=== PATIENT | female | born 1950 | race Caucasian/White ===

== ENCOUNTER 2018-11-08 11:56 | Emergency (ER) | payer MEDICARE, SELFPAY | END 2018-11-08 15:06 | disposition home or self-care (01) | PROVIDERS: Emergency Provider Emergency Medicine; PCP Family Medicine Adolescent Medicine; Visit Provider Emergency Medicine | DX: M54.9 Dorsalgia, unspecified (principal); E03.9 Hypothyroidism, unspecified; E78.5 Hyperlipidemia, unspecified; E11.9 Type 2 diabetes mellitus without complications | CPT/HCPCS: 36415; 72072; 72100; 80048; 85025; 96374; 96375; 99284; A9270; J1885; J3010 ==

== ENCOUNTER 2019-08-24 00:53 | Day surgery (SDC) | payer MEDICARE, SELFPAY ==
[2019-08-19 13:20] VITALS: BMI 30.2
[2019-08-24 08:38] VITALS: BP 138/48; PULSE 74; RESP 16; TEMP 36.8; O2SAT 97
[2019-08-24] MEDS: LACTATED RINGERS 1,000 ML 150 ML IV CONT (08:53)
[2019-08-24 08:57] LABS: Glucose Point of Care 155 (65-105)
--- NOTE | 2019-08-24 09:07 | WPDANESEPPF ---
Anes - Initial Pre Proc Eval Procedure: Operation Date: 08/24/19 09:30 Proposed Procedures p Screening Colonoscopy - Olaf Lr MD Date/Time: 08/24/19 09:07 Surgeon: Olaf Lr MD Pre Op Diagnosis: Neoplasm Screening Patient Data Age: 69 Gender: F Height: 5 ft 6 in Weight: 84 kg Last Vital Signs Temp 98.2 F 08/24/19 08:38 Pulse 74 08/24/19 08:38 Resp 16 08/24/19 08:38 BP 138/48 L 08/24/19 08:38 Pulse Ox 97 08/24/19 08:38 Allergies Allergy/AdvReac Type Severity Reaction Status Date / Time rosuvastatin Allergy Severe RASH, Verified 08/24/19 08:36 ITCHING adhesive tape Allergy Intermediate Rash Verified 08/24/19 08:36 Quinolones Allergy Mild RASH Verified 08/24/19 08:36 Sulfa (Sulfonamide Allergy Mild RASH, Verified 08/24/19 08:36 Antibiotics) ITCHING codeine Allergy Unknown Verified 08/24/19 08:36 Penicillins Allergy Unknown Verified 08/24/19 08:36 Home Medications Medication Instructions Recorded Confirmed Type diclofenac sodium 75 mg PO DAILY 08/19/19 08/19/19 History diltiazem HCl [Cartia XT] 240 mg PO DAILY 08/19/19 08/19/19 History levothyroxine 125 mcg PO DAILY 08/19/19 08/19/19 History lisinopril 40 mg PO DAILY 08/19/19 08/19/19 History metformin 500 mg PO DAILY 08/19/19 08/19/19 History pantoprazole 40 mg PO DAILY 08/19/19 08/19/19 History paroxetine HCl 30 mg PO DAILY 08/19/19 08/19/19 History tramadol 50 mg PO PRN 08/19/19 History Laboratory Tests 08/24/19 08:50 POC Capillary Glucose 155 mg/dl H mg/dl (65-105) Patient hx anesthesia problems: none Family hx anesthesia problems: none PMFSH Past Medical History Medical History (Updated 08/24/19 @ 09:07 by Gonzalo Burns MD) Depression Diabetes GERD (gastroesophageal reflux disease) Hyperlipidemia Hypothyroid Social History Social History Smoking status: Never smoker Alcohol intake: never Anes - Eval Final PreProcedure Day of Procedure 08/24/19 09:07 Patient weight: overweight Heart: regular rate and rhythm Lungs: clear to auscultation Airway: Mallampati scale class II Neurological: alert and oriented Last oral intake: >/= 8 hours ASA classification: III Emergent: no Anesthetic plan: proceed Anesthesia type and monitoring: general GIVS and standard monitoring Informed Consent: The patient's anesthetic plan and its attendant risks and benefits were discussed with the patient/family/POA. Questions were solicited and answers provided to the satisfaction of the patient/family/POA.
--- NOTE | 2019-08-24 09:34 | WPDGICN ---
Assessment and Plan Additional Plan this is a 69-year-old white female patient seen in evaluation at the request of Dr. Haskins. Patient presents for screening colonoscopy. Her current weight appetite bowel movements are normal. She denies any blood in her stools. She denies abdominal pain. Family history is noncontributory. Past medical history is significant for diabetes, GE reflux disease, hyperlipidemia, and hypothyroidism, and depression. Medications taken at home include diclofenac, diltiazem, levothyroxine, lisinopril, metformin, pantoprazole, paroxetine, and tramadol. She is allergic to rosuvastatin, quinolones, and sulfa. Physical exam reveals patient to be alert. Oriented x3. Vital signs stable. HEENT exam unremarkable. Lungs are clear to auscultation and percussion. Heart is without murmur or extra sounds. Abdominal exam bowel sounds are present soft nontender with no organomegaly. Digital external rectal exam normal. Impression 1. Neoplasia screening. Plan is for colonoscopy. This report follow separately. GI Consult Note Consult date/time: 08/24/19 09:34 HPI: Fiona Rodríguez is a 69 year old female [facility] Past Medical History Medical History (Updated 08/24/19 @ 09:07 by Gonzalo Burns MD) Depression Diabetes GERD (gastroesophageal reflux disease) Hyperlipidemia Hypothyroid Social History Social History Smoking status: Never smoker Alcohol intake: never Meds Home Medications and Allergies Home Medications Medication Instructions Recorded Confirmed Type diclofenac sodium 75 mg PO DAILY 08/19/19 08/19/19 History diltiazem HCl [Cartia XT] 240 mg PO DAILY 08/19/19 08/19/19 History levothyroxine 125 mcg PO DAILY 08/19/19 08/19/19 History lisinopril 40 mg PO DAILY 08/19/19 08/19/19 History metformin 500 mg PO DAILY 08/19/19 08/19/19 History pantoprazole 40 mg PO DAILY 08/19/19 08/19/19 History paroxetine HCl 30 mg PO DAILY 08/19/19 08/19/19 History tramadol 50 mg PO PRN 08/19/19 History Allergies Allergy/AdvReac Type Severity Reaction Status Date / Time rosuvastatin Allergy Severe RASH, Verified 08/24/19 08:36 ITCHING adhesive tape Allergy Intermediate Rash Verified 08/24/19 08:36 Quinolones Allergy Mild RASH Verified 08/24/19 08:36 Sulfa (Sulfonamide Allergy Mild RASH, Verified 08/24/19 08:36 Antibiotics) ITCHING codeine Allergy Unknown Verified 08/24/19 08:36 Penicillins Allergy Unknown Verified 08/24/19 08:36 Vital Signs Vital Signs - 24 hr 08/24/19 08:38 Temperature 36.8 C Pulse Rate 74 Respiratory Rate 16 Blood Pressure 138/48 L Pulse Oximetry 97
[2019-08-24] MEDS: SIMETHICONE ORAL SUSPENSION 20 MG/0.3 ML 30 ML BOTTLE 0.6 ML IRRIGATION (09:47)
[2019-08-24 10:00] VITALS: BP 155/63; PULSE 80; RESP 17; O2SAT 95
[2019-08-24 10:10] VITALS: BP 133/56; PULSE 69; RESP 21; O2SAT 97
[2019-08-24 10:20] VITALS: BP 130/58; PULSE 72; RESP 18; O2SAT 97
== END 2019-08-24 10:33 | disposition home or self-care (01) ==
PROVIDERS: PCP Family Medicine Adolescent Medicine; Visit Provider Internal Medicine Gastroenterology
PROC: 0DJD8ZZ Inspection of Lower Intestinal Tract, Via Natural or Artificial Opening Endoscopic (ICD-10-PCS; CPT 45378; principal; 2019-08-24 09:30)
DX: Z12.11 Encounter for screening for malignant neoplasm of colon (principal); K57.30 Diverticulosis of large intestine without perforation or abscess without bleeding; K64.8 Other hemorrhoids; E11.9 Type 2 diabetes mellitus without complications; E78.5 Hyperlipidemia, unspecified; E03.9 Hypothyroidism, unspecified; K21.9 Gastro-esophageal reflux disease without esophagitis; F32.9 Major depressive disorder, single episode, unspecified; Z79.84 Long term (current) use of oral hypoglycemic drugs
CPT/HCPCS: G0121; J2704; J7120

== ENCOUNTER 2020-05-26 12:46 | Outpatient (CLI) | payer MEDICARE, SELFPAY ==
--- NOTE | 2020-05-29 08:39 | WPDPFTINT ---
PFT Interpretation PFT Interpretation: This PFT met all criteria for ATS standards and reproducibility FEV/FVC post bronchodilator 68% FEV1 100% FVC 105% TLC 109% RV 102% RV/TLC 37% DLCO 67% when adjusted for alveolar volume but not adjusted for hemoglobin Flow volume loops appeared normal Impression: Mild airflow obstruction with mildly reduced diffusion capacity. This pattern is suggestive of COPD Clinical correlation is advised.
== END 2020-05-26 12:47 | disposition home or self-care (01) ==
PROVIDERS: PCP Family Medicine Adolescent Medicine; Visit Provider Internal Medicine Critical Care Medicine
DX: R06.00 Dyspnea, unspecified (principal)
CPT/HCPCS: 94060; 94726; 94729

== ENCOUNTER 2020-07-05 12:41 | Outpatient (CLI) | payer MEDICARE, SELFPAY ==
--- NOTE | 2020-07-08 05:43 | WPDPFTINT ---
PFT Interpretation This is a methacholine challenge test. The test was performed and interpreted in accordance with the 1999 [employer] [employer] guidelines. The test was performed with increasing doses of nebulized methacholine using a 2 minute tidal breathing protocol. The best post-methacholine FEV1 values were used to calculate the change from the post diluent FEV1. Findings: Baseline FEV1 2.20 L, 100% predicted. Post diluent FEV1 2.21 L Post 0.025 mg/ml methacholine FEV1 2.08 L, decreased 6% Post 0.25 mg/mL methacholine FEV1 2.10 L, decreased 5% Post 2.5 mg/mL methacholine FEV1 1.97 L, decreased 11% Post 10 mg/mL methacholine FEV1 1.65 L, decreased 25% Post albuterol nebulization FEV1 2.06 L Impression: The PC20 is 5.9 mg/ml which is categorized as borderline bronchial responsiveness. There are no prior studies for comparison
== END 2020-07-05 12:42 | disposition home or self-care (01) ==
PROVIDERS: PCP Family Medicine Adolescent Medicine; Visit Provider Internal Medicine Critical Care Medicine
DX: R06.09 Other forms of dyspnea (principal)
CPT/HCPCS: 94070; J7674

== ENCOUNTER → 2020-07-22 11:09 | Outpatient (CLI) | payer MEDICARE, SELFPAY ==
--- NOTE | ~2020-07-22 | MM_ITS ---
EXAMINATION: MM screening coy BI w jacqueline HISTORY: Screening TECHNIQUE: Craniocaudal and mediolateral oblique 3-D tomosynthesis images were obtained and synthetic 2-D images were generated. CAD analysis was submitted and interpreted. COMPARISON: Comparison to multiple prior studies sequentially, with oldest reviewed study dated 03/25. BREAST PARENCHYMAL COMPOSITION: There are scattered areas of fibroglandular density. FINDINGS: There is no evidence of suspicious mass, calcification, or architectural distortion to sugg est malignancy in either breast. There has been no suspicious interval change. IMPRESSION: 1. No mammographic evidence of malignancy. 2. Recommend routine screening mammography in one year. BI-RADS Category 1: Negative Reviewed, dictated and finalized at location A. ET MASTER
== END ==
PROVIDERS: PCP Family Medicine Adolescent Medicine; Visit Provider Family Medicine Adolescent Medicine
DX: Z12.31 Encounter for screening mammogram for malignant neoplasm of breast (principal)
CPT/HCPCS: 77063; 77067

== ENCOUNTER → 2020-08-02 13:01 | Outpatient (CLI) | payer MEDICARE, SELFPAY ==
--- NOTE | ~2020-08-02 | XR_ITS ---
EXAMINATION: XR chest 2V DATE: 08/02/2020 13:56 INDICATION: Dyspnea on exertion. TECHNIQUE: Frontal and lateral views of the chest were obtained. COMPARISON: Chest 2 views 09/23/18 FINDINGS: There is mild atelectasis at left lung base. No pleural effusion or pneumothorax. The heart size is normal. There is mild chronic anterior wedging of multiple midthoracic vertebral bodies. IMPRESSION: 1. Mild atelectasis at left lung base. Reviewed, dictated and finalized at location A. STAPLER
--- NOTE | ~2020-08-02 | MR_ITS ---
EXAMINATION: MR cervical spine wo con DATE: 08/02/2020 13:46 INDICATION: Paresthesias and weakness in the right arm. TECHNIQUE: Magnetic resonance imaging (MRI) of the cervical spine was performed without intravenous c ontrast. Sequences included sagittal T2-weighted FSE, sagittal STIR FSE, sagittal T1-weighted FSE, ax ial MERGE, and axial T2-weighted FSE. COMPARISON: None FINDINGS: There is 5 degrees dextrocurvature of cervical spine. There is kyphosis of lower cervical s pine. There is 2 mm anterolisthesis of C4 on C5. There is mild chronic anterior wedging of C5 and C6 vertebral bodies. There is mildly decreased disc height at C3-C4, moderately decreased disc height at C5-C6, and severely decreased disc height at C6-C7. The spinal cord signal intensity is normal. The following disc levels are specifically discussed: C2-C3: There is a central protrusion. There is mild right and moderate left uncovertebral joint osteo arthritis. There is mild right and severe left facet joint osteoarthritis. There is moderate left ally ral foraminal stenosis. There is mild central canal stenosis. C3-C4: The disc is bulging. There is moderate right and severe left uncovertebral joint osteoarthriti s. There is severe bilateral facet joint osteoarthritis. There is moderate bilateral neural foraminal stenosis. There is mild central canal stenosis. C4-C5: The disc is bulging. There is mild bilateral uncovertebral joint osteoarthritis. There is mode rate right and severe left facet joint osteoarthritis. There is moderate bilateral neural foraminal s tenosis. There is mild central canal stenosis with ventral indentation of the spinal cord. C5-C6: The disc is bulging. There is severe bilateral uncovertebral joint osteoarthritis. There is se bhupendra bilateral facet joint osteoarthritis. There is severe right and moderate left neural foraminal s tenosis. There is mild central canal stenosis with ventral indentation of spinal cord. C6-C7: The disc is bulging. There is severe bilateral uncovertebral joint osteoarthritis. There is se bhupendra bilateral facet joint osteoarthritis. There is moderate bilateral neural foraminal stenosis. The re is mild central canal stenosis with ventral indentation of the spinal cord. C7-T1: The disc does not extend beyond the endplate margin. There is no uncovertebral joint osteoarth ritis. There is severe bilateral facet joint osteoarthritis. There is mild bilateral neural foraminal stenosis. There is no central canal stenosis. IMPRESSION: 1. Severe cervical spondylosis. Reviewed, dictated and finalized at location A. OGICAL ENGINEER
== END ==
PROVIDERS: PCP Family Medicine Adolescent Medicine; Visit Provider Family Medicine Adolescent Medicine
DX: R20.2 Paresthesia of skin (principal); R06.09 Other forms of dyspnea; M47.812 Spondylosis without myelopathy or radiculopathy, cervical region; R91.8 Other nonspecific abnormal finding of lung field
CPT/HCPCS: 71046; 72141

== ENCOUNTER → 2020-08-22 14:15 | Outpatient (CLI) | payer MEDICARE, SELFPAY ==
--- NOTE | ~2020-08-22 | XR_ITS ---
EXAMINATION: XR lumbar spine 2-3V DATE: 08/22/2020 14:33 INDICATION: Low back pain TECHNIQUE: Anteroposterior and lateral views of the lumbar spine, and cone-down lateral view of the l umbosacral junction were obtained. COMPARISON: 11/08/2018 FINDINGS: There are 4 mm of stable anterolisthesis of L4 on L5. Severe and unchanged loss of interver tebral disc space height is present at L2-3. There is mild loss of intervertebral disc space height t hroughout the remainder of the lumbar spine. No fracture is identified. The vertebral body heights ar e maintained. There is severe multilevel facet osteoarthritis. Cholecystectomy clips are noted. IMPRESSION: 1. Severe lumbar spondylosis without acute findings or significant interval change. Reviewed, dictated and finalized at location A. DING ASSOCIATE IMPRESSION: 1. Severe lumbar spondylosis without acute findings or significant interval miguel nge.
== END ==
PROVIDERS: PCP Family Medicine Adolescent Medicine; Visit Provider Family Medicine Adolescent Medicine
DX: M54.5 Low back pain (principal); M47.816 Spondylosis without myelopathy or radiculopathy, lumbar region
CPT/HCPCS: 72100

== ENCOUNTER → 2020-08-24 12:01 | Outpatient (CLI) | payer MEDICARE, SELFPAY ==
--- NOTE | ~2020-08-24 | MR_ITS ---
EXAMINATION: MR lumbar spine wo con DATE: 08/24/2020 12:55 INDICATION: Severe lumbar spondylosis with low back pain and bilateral radiculopathy. TECHNIQUE: Magnetic resonance imaging (MRI) of the lumbar spine was performed without intravenous con trast. Sequences included sagittal T2-weighted FSE, sagittal T2-weighted FS FSE, sagittal T1-weighted FSE, and axial T2-weighted FSE. COMPARISON: Lumbar spine radiographs dated 08/22/2020 FINDINGS: 2 mm retrolisthesis L2 on L3 and 2 mm anterolisthesis L4 on L5. Approximately 10 degrees lumbar levos coliosis. Moderate to severe right-sided predominant disc height loss at L2-L3 with right-sided degen erative endplate remodeling resulting in minimal right-sided vertebral body height loss at both L2 an d L3. Vertebral body heights are otherwise normal. Mild disc height loss at L3-L4 and L4-L5. Disc maria d iccation without significant disc height loss at L5-S1. There are annular fissures at each of these l evels which will be further detailed below. Multiple T1 hyperintense hemangiomas including at T12, L2 , L3 and S1. Otherwise normal marrow signal. The conus medullaris terminates at L1. There is normal s ignal in the caudal spinal cord. Paravertebral soft tissues are unremarkable. The following disc leve ls are specifically discussed: T12-L1: The disc does not extend beyond the endplate margin. There is left and moderate right facet j oint osteoarthritis. There is no neural foraminal stenosis. There is no central canal stenosis. L1-L2: The disc does not extend beyond the endplate margin. There is moderate bilateral facet joint o steoarthritis. There is no neural foraminal stenosis. There is no central canal stenosis. L2-L3: Disc is bulging with annular fissure and superimposed right foraminal zone disc extrusion with disc material extending 2-3 mm caudal to the level of the superior endplate of L3. There is hypertro phy of the ligamentum flavum, right greater than left. There is moderate left and severe right facet joint osteoarthritis. There is mild left and moderate right neural foraminal stenosis. There is moder ate to severe central canal stenosis with negligible CSF signal amongst the centrally clustered nerve roots. Narrowing of the lateral recesses, right greater than left. L3-L4: Disc is bulging with superimposed left paracentral to foraminal zone disc extrusion with disc material extending up to 4 mm cephalad and caudal to the level of the endplates. There is hypertrophy of the ligamentum flavum. There is severe bilateral facet joint osteoarthritis. There is a synovial cyst at the medial aspect of the left facet joint projecting into the central canal. There is mild r ight and moderate left neural foraminal stenosis. There is severe central canal stenosis along with s evere narrowing of the left lateral recess. L4-L5: Disc is bulging with superimposed left foraminal zone annular fissure. There is hypertrophy of the ligamentum flavum. There is severe bilateral facet joint osteoarthritis. There is moderate bila teral neural foraminal stenosis. There is moderate to severe central canal stenosis and narrowing of the left and right lateral recesses. L5-S1: Disc is bulging with superimposed right foraminal zone annular fissure and small disc extrusio n with disc material extending couple millimeter cephalad to the level of the inferior endplate of L5 . There is severe bilateral facet joint osteoarthritis. There is moderate left and mild to moderate r ight neural foraminal stenosis. There is mild central canal stenosis lung with mild narrowing of the left and right lateral recesses. IMPRESSION: 1. Moderate to severe lumbar spondylosis. Reviewed, dictated and finalized at location B. CH TROUBLE SHOOTER IMPRESSION: 1. Moderate to severe lumb
== END ==
PROVIDERS: PCP Family Medicine Adolescent Medicine; Visit Provider Family Medicine Adolescent Medicine
DX: M47.26 Other spondylosis with radiculopathy, lumbar region (principal)
CPT/HCPCS: 72148

== ENCOUNTER 2020-09-23 07:25 | Outpatient (CLI) | payer MEDICARE, SELFPAY ==
--- NOTE | 2020-09-23 | ECHO_ITS ---
Patient Info Name: Fiona Rodríguez Age: 70 years : 1950 Gender: Female Ht: 66 in Wt: 180 lbs BSA: 1.97 m2 HR: 70 bpm BP: 145 / 65 mmHg Heart Rhythm: Sinus Rhythm Exam Date: 09/23/2020 7:44 AM Exam Location: [facility] Pulmonary Patient Status: Outpatient Admit Date: 09/23/2020 Staff Ordering Physician: Elan Castro DO Call Center Operator: Shazia Lai RDCS Attending Provider: Elan Castro DO Exam Type: CA echo doppler color flow Study Info Indications R06.00 - Dyspnea, unspecified Complete two-dimensional, color flow and Doppler transthoracic echocardiogram is performed. Summary 1. Complete two-dimensional, color flow and Doppler transthoracic echocardiogram is performed. 2. Left ventricular chamber dimension is normal. 3. Left ventricular systolic function is normal, estimated at 60-65%. 4. The left ventricular diastolic function is grade I diastolic dysfunction. 5. E/e' 14 is mildly elevated. 6. There is mild aortic valve sclerosis. 7. There is mild aortic valve regurgitation. 8. There is trace mitral valve regurgitation. 9. No pulmonary hypertension, estimated pulmonary arterial systolic pressure is 28 mmHg. 10. There is small circumferential pericardial effusion. Left Ventricle E/e' 14 is mildly elevated. Left ventricular chamber dimension is normal. Left ventricular systolic function is normal, estimated at 60-65%. The left ventricular diastolic function is grade I diastolic dysfunction. Right Ventricle Right ventricular chamber dimension is normal. Right ventricular systolic function is normal. Left Atria Left atrial chamber dimension is normal. Right Atria Right atrial chamber dimension is normal. Aortic Valve The aortic valve is trileaflet. There is mild aortic valve sclerosis. There is no aortic valve stenosis. There is mild aortic valve regurgitation. Pulmonic Valve There is no pulmonic regurgitation. Mitral Valve There is no mitral valve stenosis. There is trace mitral valve regurgitation. Tricuspid Valve There is no tricuspid valve regurgitation. No pulmonary hypertension, estimated pulmonary arterial systolic pressure is 28 mmHg. Pericardium/Pleural There is small circumferential pericardial effusion. Inferior Vena Cava Normal inferior vena cava with >50% collapse upon inspiration consistent with normal right atrial pressure, 5 mmHg. Aorta The aortic root size at the sinus of Valsalva is normal. Left Ventricular Outflow Tract Name Value Normal LVOT 2D LVOT Diameter 1.7 cm LVOT Doppler LVOT Peak Velocity 132 cm/s LVOT Peak Gradient 7 mmHg LVOT Mean Gradient 3 mmHg LVOT VTI 31 cm LVOT VTI/AV VTI Ratio 0.5 LVOT Stroke Volume 69 ml LVOT CO 4.5 l/min LVOT CI 2.3 l/min/m2 Pulmonic Valve Name Value Shanique
--- NOTE | ~2020-09-23 | NM_ITS ---
EXAMINATION: NM jonel stress w perfusion DATE: 09/23/2020 11:39 INDICATION: Dyspnea TECHNIQUE: Rest images were obtained following intravenous administration of 10 mCi Tc99m tetrofosmin (Myoview). The patient was infused intravenously with Lexiscan (Regadenoson). Then, 30 mCi Tc99m tet rofosmin (Myoview) was administered intravenously, and stress images were obtained. Data was reconstr ucted into short axis and horizontal and vertical long axis SPECT images. Gated SPECT images were als o obtained. COMPARISON: None. FINDINGS: There is no definite reversible or fixed perfusion abnormality to suggest ischemia or infar ction. There is normal left ventricular chamber size, wall motion and ejection fraction. Left ventr icular ejection fraction measures 67%. IMPRESSION: 1. Normal myocardial perfusion at rest and during stress. 2. Left ventricular ejection fraction measuring 67%. Reviewed, dictated and finalized at location A.
--- NOTE | 2020-09-23 07:40 | EST_ITS ---
Patient Info Name: Fiona Rodríguez Age: 70 years : 1950 Gender: Female Ht: 66 in Wt: 180 lbs BSA: 1.97 m2 Exam Date: 09/23/2020 9:56 AM Exam Location: [facility] Stress Patient Status: Outpatient Admit Date: 09/23/2020 Staff Ordering Physician: Elan Castro DO Attending Provider: Elan Castro DO Exercise Technologist: Marysol Mota RDCS Exercise Physician: Elan Castro DO Exam Type: CA stress jonel w NM Study Info Indications R06.00 - Dyspnea, unspecified A regadenoson stress test was performed. Summary 1. 1. Negative lexiscan stress test for ischemic ST changes by ECG criteria. 2. 2. Baseline hypertension. 3. 3. Nuclear scan to follow and will be reported separately. Please correlate with it. 4. 4. Patient informed of the above results. Protocol: Lexiscan Stress ECG Details Stage: REST Duration (min): 2 min : 1 sec HR (bpm): 65 SBP (mmHg): 152 DBP (mmHg): 56 Stage: REST Duration (min): 2 min : 24 sec HR (bpm): 64 SBP (mmHg): 152 DBP (mmHg): 56 Stage: STAGE 1 Duration (min): 1 min : 0 sec HR (bpm): 70 SBP (mmHg): 159 DBP (mmHg): 60 Stage: RECOVERY Duration (min): 1 min : 0 sec HR (bpm): 79 SBP (mmHg): 159 DBP (mmHg): 60 Stage: RECOVERY Duration (min): 2 min : 0 sec HR (bpm): 76 SBP (mmHg): 158 DBP (mmHg): 56 Stage: RECOVERY Duration (min): 3 min : 0 sec HR (bpm): 70 SBP (mmHg): 156 DBP (mmHg): 55 Stage: RECOVERY Duration (min): 3 min : 7 sec HR (bpm): 70 SBP (mmHg): 156 DBP (mmHg): 55 Rest HR: 64 bpm Peak HR: 83 bpm Rest Sys BP: 152 mmHg Peak Sys BP: 159 mmHg Max Pred HR: 150 bpm % Max Pred HR: 55 % Target HR: 128 bpm Max RPP: 13,197 bpm*mmHg Termination Reason: Completed protocol Cardiac Symptoms: Nausea Total Time: 1 min : 0 sec Rest Garcia BP: 56 mmHg Peak Garcia BP: 60 mmHg Total Dose: 0.4 mg Resting ECG Sinus rhythm, borderline T wave abnormality in diffuse leads. Stress ECG No ST changes. Arrhythmias None. Report Signatures
== END 2020-09-23 07:26 | disposition home or self-care (01) ==
PROVIDERS: PCP Family Medicine Adolescent Medicine; Visit Provider Internal Medicine Cardiovascular Disease
DX: R06.00 Dyspnea, unspecified (principal); I31.3 Pericardial effusion (noninflammatory)
CPT/HCPCS: 78452; 93017; 93306; A9502; C8929; J2785

== ENCOUNTER → 2020-10-31 16:17 | Outpatient (CLI) | payer MEDICARE, SELFPAY ==
--- NOTE | ~2020-10-31 | XR_ITS ---
EXAMINATION: XR lumbar spine min 4V EXAM DATE: 10/31/2020 16:42 INDICATION: Spondylolisthesis. Pain across low back for months. TECHNIQUE: Lumber spine frontal, lateral, lateral L5-S1 projections for interpretation. Additional l ateral flexion and lateral extension projections obtained. Comparison is made to prior examination fr 08/22/2020. FINDINGS: There is moderate to severe disc disease at L2-3 with 2 to 3 mm retrolisthesis. Otherwise mild lumbar disc disease. There is 2 to 3 mm anterolisthesis L4 on L5. These subluxations do not david ear to change between the flexion and extension projections. There is mild to moderate lumbar levosco liosis. There is severe lumbar facet arthropathy. Sacrum, sacroiliac joints, sacral arcuate lines are intact. There are cholecystectomy clips. IMPRESSION: 1. Severe lumbar facet arthropathy. 2. Moderate to severe L2-3 disc disease. 3. Mild subluxations. Reviewed, dictated and finalized at location A.
== END ==
PROVIDERS: PCP Family Medicine Adolescent Medicine; Visit Provider Neurological Surgery
DX: M43.16 Spondylolisthesis, lumbar region (principal); M51.9 Unspecified thoracic, thoracolumbar and lumbosacral intervertebral disc disorder; M99.13 Subluxation complex (vertebral) of lumbar region
CPT/HCPCS: 72110

== ENCOUNTER → 2022-04-30 13:48 | Outpatient (CLI) | payer MEDICARE, SELFPAY ==
--- NOTE | ~2022-04-30 | MM_ITS ---
EXAMINATION: MM screening coy BI w jacqueline HISTORY: Screening mammogram TECHNIQUE: Craniocaudal and mediolateral oblique 3-D tomosynthesis images were obtained and synthetic 2-D images were generated. CAD analysis was submitted and interpreted. COMPARISON: 07/22/2020, 07/03/2019, 05/28/2018 bilateral screening mammogram examinations BREAST PARENCHYMAL COMPOSITION: The breasts are almost entirely fatty. FINDINGS: There is no evidence of suspicious mass, calcification, or architectural distortion to sugg est malignancy in either breast. There has been no suspicious interval change. IMPRESSION: 1. No mammographic evidence of malignancy. 2. Recommend routine screening mammography in one year. BI-RADS Category 1: Negative Reviewed, dictated and finalized at location A. 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
== END ==
PROVIDERS: PCP Family Medicine Adolescent Medicine; Visit Provider Family Medicine Adolescent Medicine
DX: Z12.31 Encounter for screening mammogram for malignant neoplasm of breast (principal)
CPT/HCPCS: 77063; 77067

== ENCOUNTER 2022-05-29 08:43 | Outpatient (CLI) | payer MEDICARE, SELFPAY ==
--- NOTE | 2022-05-29 11:00 | NEURO_ITS ---
Impression: # History of right hand numbness. # Right Carpal Tunnel Syndrome. # Needle/EMG exam not requested. # Clinical correlation recommended. Motor Nerve Conduction Upper Extremities Median Nerve Conduction Velocity (m/sec) Terminal Latency (msec) Response Voltage(mV) Elbow-Wrist Wrist Elbow Wrist Right 52 6.6 2 2 Left Ulnar Nerve Conduction Velocity (m/sec) Terminal Latency (msec) Response Voltage(mV) Above Elbow Below Elbow Wrist Above Elbow Below Elbow Wrist Right 52 54 2.2 4 5 5 Left F-Wave Latency Median (ms) Ulnar (ms) Right 28.4 29.0 Left Sensory Nerve Conduction Upper Extremities Median Nerve Stimulation Terminal Latency (msec) Wrist/Digit Response Voltage (uV) Wrist Right 6.2/6.1 30/57 Left Ulnar Nerve Stimulation Terminal Latency (msec) Wrist/Digit Response Voltage (uV) Wrist Right 2.5 26 Left Radial Nerve Terminal Latency (msec) Response Voltage(mV) Right 1.8 15 Left MTDD
== END 2022-05-29 08:44 | disposition home or self-care (01) ==
PROVIDERS: PCP Family Medicine Adolescent Medicine; Visit Provider Family Medicine Adolescent Medicine
DX: R20.2 Paresthesia of skin (principal); G56.01 Carpal tunnel syndrome, right upper limb
CPT/HCPCS: 95909

== ENCOUNTER 2022-07-27 08:31 | Outpatient (CLI) | payer MEDICARE, SELFPAY ==
--- NOTE | 2022-07-27 | ECG_ITS ---
Measurements Intervals [place] Rate: 82 P: 39 GA: 117 QRS: -13 QRSD: 91 T: 77 QT: 381 QTc: 447 Interpretive Statements SINUS RHYTHM WITH SHORT GA INTERVAL WITH OCCASIONAL VENTRICULAR PREMATURE COMPLEXES NONSPECIFIC T-WAVE ABNORMALITY NO PREVIOUS ECG AVAILABLE FOR COMPARISON Electronically Signed On 07-27-2022 14:57:48 SOCIAL SERVICES SPECIALIST by Jordan Ta M.D.
[2022-07-27 09:18] LABS: Anion Gap 12 mmol/L (8-16); Blood Urea Nitrogen 9 mg/dL (7-17); Calcium 9.1 mg/dL (8.4-10.2); Carbon Dioxide 25 mmol/L (22-30); Chloride 101 mmol/L (98-107); Estimated Glomerular Filt Rate > 60; Glucose 203 mg/dL (65-110); Potassium 4.1 mmol/L (3.4-5.0); Sodium 138 mmol/L (137-145)
== END 2022-07-27 08:32 | disposition home or self-care (01) ==
LOC: ANHLAB 08:39
PROVIDERS: PCP Family Medicine Adolescent Medicine
DX: I10 Essential (primary) hypertension (principal); E11.9 Type 2 diabetes mellitus without complications; R94.31 Abnormal electrocardiogram [ECG] [EKG]
CPT/HCPCS: 36415; 80048; 93005

== ENCOUNTER → 2022-10-02 10:25 | Outpatient (CLI) | payer MEDICARE, SELFPAY ==
--- NOTE | ~2022-10-02 | MR_ITS ---
MRI of the brain Clinical History: Memory impairment Technique: Axial and sagittal T1-weighted images were acquired. These were followed by axial T2-weigh amor, diffusion weighted, gradient, and FLAIR images. COMPARISON: 04/25/2018 Findings: There is no acute infarct, intracranial hemorrhage, or mass lesion. There are minimal chron ic white matter changes in the white matter bilaterally. Ventricles and subarachnoid spaces are unremarkable. Orbits are unremarkable. Paranasal sinuses and m astoid air cells are clear. Major intracranial flow voids appear intact. Sagittal midline structures are intact. IMPRESSION: No acute abnormality. Minimal chronic white matter changes. Reviewed, dictated and finalized at location M.
== END ==
PROVIDERS: PCP Family Medicine Adolescent Medicine; Visit Provider Student in an Organized Health Care Education/Training Program
DX: F03.90 Unspecified dementia, unspecified severity, without behavioral disturbance, psychotic disturbance, mood disturbance, and anxiety (principal)
CPT/HCPCS: 70551

== ENCOUNTER → 2023-02-01 10:11 | Outpatient (CLI) | payer MEDICARE, SELFPAY ==
--- NOTE | ~2023-02-01 | DEXA_ITS ---
Bone Density Report Name: ASHTYN BRYANT Age: 72 Sex: Female Ethnicity: White Date of : 1950 Indication: postmenopausal; screening for osteoporosis; height loss; hysterectomy; Referring Provider: ANETTE CUELLAR Study: Bone densitometry was performed. Exam Date: February 01, 2023 Accession number: [id number] Bone Density: Region BMD T-score Z-score Classification AP Spine (L1, L4) 1.174 1.2 3.5 Normal Femoral Neck (Left) 0.930 0.7 2.7 Normal Total Hip (Left) 0.981 0.3 2.0 Normal Femoral Neck (Right) 0.939 0.8 2.8 Normal Total Hip (Right) 0.926 -0.1 1.5 Normal Total Hip Mean 0.954 0.1 1.8 Normal World Health Organization criteria for BMD impression classify patients as: Normal (T-score at or above -1.0), Osteopenia (T-score between -1.0 and -2.5), or Osteoporosis (T-score at or below -2.5). 10-year Fracture Risk: FRAX not reported because: All T-scores for Spine Total, Hip Total, Femoral Neck at or above -1.0 Previous Exams: Region Exam Age BMD T-score BMD Change BMD Change Date g/cm2 vs Baseline vs Previous AP Spine(L1, L4) 02/01/2023 72 1.174 1.2 -0.097 0.046* 05/07/2017 66 1.128 0.8 -0.143 -0.043* 04/26/2008 57 1.172 1.2 -0.100 -0.100 05/19/2003 52 1.272 2.1 Total Hip(Left) 02/01/2023 72 0.981 0.3 -0.060 0.018 05/07/2017 66 0.964 0.2 -0.077 -0.071* 04/26/2008 57 1.035 0.8 -0.006 -0.006 05/19/2003 52 1.041 0.8 Total Hip(Right) 02/01/2023 72 0.926 -0.1 -0.148 -0.057* 05/07/2017 66 0.983 0.3 -0.091 -0.036* 04/26/2008 57 1.019 0.6 -0.055 -0.055 05/19/2003 52 1.074 1.1 *Denotes significance at 95% confidence level, LSC for AP Spine = 0.022 g/cm2, LSC for Total Hip = 0.027 g/cm2 Clinical Information Provided by Patient: Has the following medical conditions: Hysterectomy Patient maximum height was 67 Menopause Age: 32 No regular weight bearing exercise Drinks caffeinated beverages Onset of menses at age 12 Number of children 2 Impression: The patient has normal bone mass. The BMD for the Total Hip(Right) decreased, changing by -0.057 since the last DXA exam. Discussion: BONE DENSITY IS ABOVE THE MINIMUM DESIRABLE LEVEL AT ALL SKELETAL SITES TESTED. This patient?s bone mineral density is above the minimum
== END ==
PROVIDERS: PCP Family Medicine Adolescent Medicine; Visit Provider Family Medicine Adolescent Medicine
DX: Z78.0 Asymptomatic menopausal state (principal)
CPT/HCPCS: 77080

== ENCOUNTER 2023-03-21 07:00 | Outpatient (NON) | payer MEDICARE, SELFPAY | END 2023-03-21 07:01 | disposition home or self-care (01) | LOC: ANHLAB 03-22 11:01 | PROVIDERS: PCP Family Medicine Adolescent Medicine; Visit Provider Nurse Practitioner | DX: C44.41 Basal cell carcinoma of skin of scalp and neck (principal) | CPT/HCPCS: 88305 ==

== ENCOUNTER → 2023-03-27 10:52 | Outpatient (CLI) | payer MEDICARE, SELFPAY ==
--- NOTE | ~2023-03-27 | MR_ITS ---
MRI of the lumbar spine Clinical History: Radicular pain Technique: Axial T2-weighted images, and sagittal T1-weighted, T2-weighted, and T2 fat-sat images wer e acquired. COMPARISON: 08/24/2020 Findings: There is no fracture in the lumbar spine. There is minimal grade 1 retrolisthesis of L2 ove r L3. There is severe degenerative disc narrowing L2-L3. No suspicious bone marrow signal abnormality seen. There is intraosseous hemangioma of T12. At L1-L2, there is no disc bulge or herniation. There is moderate to severe facet arthropathy. No spi nal canal stenosis or neural foraminal narrowing. At L2-L3, there is disc bulge and severe facet arthropathy, with moderate central canal stenosis. The re is severe right neural foraminal narrowing and right lateral recess stenosis. There is mild left n eural foraminal narrowing. At L3-L4, disc bulge and severe facet arthropathy are present with probable superimposed left paracen tral to foraminal disc protrusion. There is severe central canal stenosis/thecal sac compression. The re is severe bilateral neural foraminal narrowing, left worse than right. At L4-L5, there is diffuse disc bulge and severe facet arthropathy. There is moderate to severe centr al canal stenosis/thecal sac compression. There is advanced bilateral neural foraminal narrowing. At L5-S1, there is mild disc bulge with severe facet arthropathy. No central canal stenosis. There is severe bilateral neural foraminal narrowing, left worse than right. Paravertebral soft tissues are unremarkable. Impression: Severe degenerative spondylosis, as detailed above. There is multilevel moderate to severe central ca nal stenosis/thecal sac compression and multilevel severe neural foraminal narrowing. Reviewed, dictated and finalized at [facility]. Impression: Severe degenerative spondylosis, as detailed above. There is multilevel moderat e to severe central canal stenosis/thecal sac compression and multilevel severe neural foraminal narrowing.
== END ==
PROVIDERS: PCP Family Medicine Adolescent Medicine; Visit Provider Nurse Practitioner Family
DX: M47.26 Other spondylosis with radiculopathy, lumbar region (principal); M48.061 Spinal stenosis, lumbar region without neurogenic claudication
CPT/HCPCS: 72148

== ENCOUNTER 2023-04-29 14:06 | Outpatient (NON) | payer MEDICARE, SELFPAY | END 2023-04-29 14:07 | disposition home or self-care (01) | PROVIDERS: PCP Family Medicine Adolescent Medicine; Visit Provider Nurse Practitioner | DX: C44.41 Basal cell carcinoma of skin of scalp and neck (principal) | CPT/HCPCS: 88305; 88331 ==

== ENCOUNTER → 2023-05-03 10:02 | Outpatient (CLI) | payer MEDICARE, SELFPAY ==
--- NOTE | ~2023-05-03 | MM_ITS ---
EXAMINATION: MM screening coy BI w jacqueline HISTORY: Screening TECHNIQUE: Craniocaudal and mediolateral oblique 3-D tomosynthesis images were obtained and synthetic 2-D images were generated. CAD analysis was submitted and interpreted. COMPARISON: Comparison to multiple prior studies sequentially, with oldest reviewed study dated 03/25. BREAST PARENCHYMAL COMPOSITION: There are scattered areas of fibroglandular density. FINDINGS: There is no evidence of suspicious mass, calcification, or architectural distortion to sugg est malignancy in either breast. There has been no suspicious interval change. IMPRESSION: 1. No mammographic evidence of malignancy. 2. Recommend routine screening mammography in one year. BI-RADS Category 1: Negative Reviewed, dictated and finalized at location A. 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
== END ==
PROVIDERS: PCP Family Medicine Adolescent Medicine; Visit Provider Family Medicine Adolescent Medicine
DX: Z12.31 Encounter for screening mammogram for malignant neoplasm of breast (principal)
CPT/HCPCS: 77063; 77067

== ENCOUNTER → 2023-05-14 09:55 | Outpatient (CLI) | payer MEDICARE, SELFPAY ==
--- NOTE | ~2023-05-14 | XR_ITS ---
EXAMINATION: XR ankle LT 2V DATE: 05/14/2023 10:31 INDICATION: Left ankle pain. TECHNIQUE: 2 views of left ankle were obtained. COMPARISON: None. FINDINGS: Bone alignment is normal. No fracture. Joint spaces are normal. There is heterotopic ossifi cation distal to medial malleolus. There are enthesophytes at the posterior and plantar aspects of ca lcaneal tuberosity. IMPRESSION: 1. No fracture. Reviewed, dictated and finalized at location E. NESS CONTINUITY GLOBAL DIRECTOR IMPRESSION: 1. No fracture.
== END ==
PROVIDERS: PCP Family Medicine Adolescent Medicine; Visit Provider Family Medicine Adolescent Medicine
DX: M25.572 Pain in left ankle and joints of left foot (principal)
CPT/HCPCS: 73600

== ENCOUNTER 2023-06-28 10:06 | Emergency (ER) | payer MEDICARE, SELFPAY ==
[2023-06-28 10:28] VITALS: BP 129/63; PULSE 87; RESP 18; TEMP 36.2; O2SAT 97
--- NOTE | 2023-06-28 10:41 | ED.URI ---
HPI - URI/Sore Throat General Chief Complaint: Upper Respiratory Infection Stated Complaint: Sore Throat/Ears Source: patient and RN notes reviewed Mode of arrival: ambulatory Limitations: no limitations History of Present Illness HPI Narrative: 73-year-old female presented for complaint of headache, body aches, sinus pressure/congestion, cough, fever/chills. onset 1 week. She states after about 4 days of symptoms, she was prescribed clindamycin by PCP, which she states she took for about 2 days, but it caused vomiting and diarrhea so she stopped the medicine. She continues to report diarrhea. Denies sob, wheezing, cp, palpiations or lethargy. Taking Tylenol for symptoms. MD elicited complaint: cough Related Data Home Medications Medication Instructions Recorded Confirmed omega 6-uer-goe-fish oil 1,000 mg 1 cap PO DAILY 04/13/22 03/15/23 (120 mg-180 mg) capsule (Fish Oil) Allergies Allergy/AdvReac Type Severity Reaction Status Date / Time rosuvastatin Allergy Severe RASH, Verified 06/28/23 10:28 ITCHING adhesive tape Allergy Intermediate Rash Verified 06/28/23 10:28 Quinolones Allergy Mild RASH Verified 06/28/23 10:28 Sulfa (Sulfonamide Allergy Mild RASH, Verified 06/28/23 10:28 Antibiotics) ITCHING codeine Allergy Unknown Unknown Verified 06/28/23 10:28 Penicillins Allergy Unknown Unknown Verified 06/28/23 10:28 celecoxib AdvReac Severe Abdominal Verified 06/28/23 10:28 Pain donepezil AdvReac Intermediate vomiting Verified 06/28/23 10:28 erythromycin base AdvReac Intermediate unknown Verified 06/28/23 10:28 metformin AdvReac Intermediate unknown Verified 06/28/23 10:28 prednisone AdvReac Intermediate Vomiting & Verified 06/28/23 10:28 diarrhea venlafaxine AdvReac Intermediate unknown Verified 06/28/23 10:28 Review of Systems Review of Systems: CONSTITUTIONAL: Endorses malaise, denies chills, sweats, fever EYES: Denies visual changes, redness, or discharge ENT: Reports rhinorrhea, congestion, otalgia, sore throat CARDIOVASCULAR: Denies chest pain, palpitations, edema RESPIRATORY: Reports cough, post nasal drainage. Denies dyspnea GASTROINTESTINAL: Reports diarrhea Denies abdominal pain, nausea, vomiting SKIN: Denies rash or itching MUSCULOSKELETAL: denies myalgia NEUROLOGIC: reports headache PMFSH Past Medical History Medical History Depression Diabetes GERD (gastroesophageal reflux disease) Hypothyroid Normal colonoscopy 09/10 Repeat 09/20 Surgical History Surgical History History of partial hysterectomy Hx of cholecystectomy Social History Social History Smoking status: Never smoker Second hand tobacco smoke exposure: Yes Alcohol intake: never Substance use: never Substance use type: marijuana Other substance usage details: gummies Lack of Transportation: No Lack of Food: Never True Current Housing: I Have Housing Concerned About Future Housing: No Difficulty Paying Gas/Electric Bills: No Difficulty Paying for Meds: No Currently Unemployed: No Education: High School Diploma/GED Difficulty w/ Childcare or Family Care: No Living arrangements: with family Occupation/Education: retired Gender identity (if verbalized by the patient): Female Sexual Orientation (if Verbalized by the Patient): Straight or Heterosexual Spiritual care concerns: No Agree to blood products: Yes Exam Narrative: GENERAL: mildly Ill-appearing, nontoxic no acute distress. EYES: PERRLA, conjunctivae clear ENT: Mucous membranes moist. TMs pearly carlin with dull light reflex bilaterally; no tragal tenderness. Oropharynx not erythematous without lesions or exudate, no drooling, no hoarseness, no trismus, uvula midline. No tripod positioning, muffled voice, soft palate or pharyngeal wall bulging
== END 2023-06-28 10:58 | disposition home or self-care (01) ==
PROVIDERS: Emergency Provider Nurse Practitioner Family; PCP Family Medicine Adolescent Medicine
DX: U07.1 COVID-19 (principal); E11.9 Type 2 diabetes mellitus without complications; K21.9 Gastro-esophageal reflux disease without esophagitis; E03.9 Hypothyroidism, unspecified; Z90.711 Acquired absence of uterus with remaining cervical stump
CPT/HCPCS: 87426; 87804; 99213; C9803; G0463

== ENCOUNTER 2023-08-07 10:54 | Outpatient (CLI) | payer MEDICARE, SELFPAY ==
--- NOTE | ~2023-08-07 | XR_ITS ---
XR lumbar spine 2-3V DATE: 08/07/2023 11:22 INDICATION: Spinal stenosis TECHNIQUE: AP, lateral, coned lateral lumbosacral views COMPARISON: 03/27/2023 MR lumbar spine 10/31/2020 lumbar spine FINDINGS: Diffuse osteopenia. Mild thoracolumbar levoscoliosis. No fracture or bone destruction is evident. The lumbar pedicles are intact. There is severe degenerative disc disease at L2-3. Mild degenerative disc disease at L3-4. L1-2, L4-5 and L5-S1 interspaces are well preserved. There is very prominent degenerative change at the apophyseal joints in the lower lumbar area, partic ularly L4-5 and L5-S1, with associated grade 1 anterolisthesis at L4-5. The sacroiliac joints are intact. Status post cholecystectomy. IMPRESSION: Osteopenia Mild thoracolumbar levoscoliosis Mild bilateral degenerative disc disease, particularly severe at L2-3 Grade 1 anterolisthesis at L4-5 due to degenerative change at the apophyseal joints Little interval change since 10/31/2020 Reviewed, dictated and finalized at location B. T STUFFER IMPRESSION: Osteopenia Mild thoracolumbar levoscoliosis Mild bilateral degenerative disc disease, particularly severe at L2-3 Grade 1 anterolisthesis at L4-5 due to degenerative change at the apophyseal remigio ints Little interval change since 10/31/2020
--- NOTE | ~2023-08-07 | XR_ITS ---
EXAMINATION: XR sacroiliac joints min 3V DATE: 08/07/2023 11:22 INDICATION: Low back pain. Sacroiliac joint pain. TECHNIQUE: 3 views of the sacroiliac joints were obtained. COMPARISON: None. FINDINGS: There is lumbar levocurvature. No fracture. There is mild osteoarthritis of the sacroiliac joints. IMPRESSION: 1. Mild osteoarthritis of the sacroiliac joints. Reviewed, dictated and finalized at location A. CTOR ENTERPRISE SYSTEMS
== END 2023-08-07 10:55 ==
PROVIDERS: PCP Family Medicine Adolescent Medicine; Visit Provider Family Medicine Adolescent Medicine
DX: M48.061 Spinal stenosis, lumbar region without neurogenic claudication (principal); M46.1 Sacroiliitis, not elsewhere classified; M41.85 Other forms of scoliosis, thoracolumbar region; M51.36 Other intervertebral disc degeneration, lumbar region; M43.06 Spondylolysis, lumbar region
CPT/HCPCS: 72100; 72202

== ENCOUNTER 2023-09-14 10:46 | Outpatient (CLI) | payer MEDICARE, SELFPAY ==
--- NOTE | ~2023-09-14 | XR_ITS ---
XR ankle LT min 3V 09/14/2023 11:44 Indication: Left ankle pain Procedure: 4 views left ankle Comparison: 05/14/2023 Findings: There is polyarticular osteoarthritis with loose bodies. There are degenerative calcaneal e nthesophytes. Ankle mortise intact. Talar dome is normal. No acute fracture or traumatic malalignment . Impression: 1: Moderate osteoarthritis of the left ankle. Reviewed, dictated and finalized at location A. Impression: 1: Moderate osteoarthritis of the left ankle.
--- NOTE | ~2023-09-14 | XR_ITS ---
EXAMINATION: XR chest 2V 09/14/2023 11:44 INDICATION: Dyspnea PROCEDURE: 2 view chest COMPARISON: Comparison to multiple prior studies sequentially, with oldest reviewed study dated 06/2016. FINDINGS: The lungs are clear. The cardiomediastinal silhouette is within normal limits. There are no pleural effusions. There is no pneumothorax suspected. IMPRESSION: 1: NO ACUTE CARDIOPULMONARY DISEASE. Reviewed, dictated and finalized at location A.
--- NOTE | ~2023-09-14 | XR_ITS ---
XR ankle RT min 3V 09/14/2023 11:44 Indication: Right ankle pain Procedure: 4 views right ankle Comparison: 09/23/2018 Findings: There is osteoarthritis of the right ankle. No fracture, subluxation or dislocation. Ankle mortise intact. No significant soft tissue abnormality. There are degenerative calcaneal enthesophyte s. Impression: 1: Mild osteoarthritis of the right ankle. Reviewed, dictated and finalized at location A. Impression: 1: Mild osteoarthritis of the right ankle.
== END 2023-09-14 10:47 ==
LOC: MICIMG 10:50
PROVIDERS: PCP Family Medicine Adolescent Medicine; Visit Provider Family Medicine Adolescent Medicine
DX: R06.00 Dyspnea, unspecified (principal); R07.81 Pleurodynia; M19.071 Primary osteoarthritis, right ankle and foot; M19.072 Primary osteoarthritis, left ankle and foot
CPT/HCPCS: 71046; 73610

== ENCOUNTER 2024-03-24 08:29 | Outpatient (CLI) | payer MEDICARE, SELFPAY ==
--- NOTE | 2024-03-24 09:10 | NEURO_ITS ---
Impression: # Diabetic complains of paresthesia of left hand. # Severe left Carpal Tunnel Syndrome with proximal involvement of the nerve as well # No ulnar neuropathy. # Needle/EMG exam not requested. Nerve Conduction Studies Anti Sensory Summary Table Stim Site NR Peak (ms) P-T Amp (?V) Site1 Site2 Delta-P (ms) Dist (cm) Delmar (m/s) Left Median Anti Sensory (2-3nd Digit) Wrist 6.2 29.2 Wrist 2-3nd Digit 6.2 14.0 23 Wrist 6.7 5.5 Wrist 2-3nd Digit 6.2 14.0 23 Left Radial Anti Sensory (Base 1st Digit) Wrist 1.6 20.1 Wrist Base 1st Digit 1.6 0.0 Left Ulnar Anti Sensory (5th Digit) Wrist 2.3 37.2 Wrist 5th Digit 2.3 14.0 61 Motor Summary Table Stim Site NR Onset (ms) O-P Amp (mV) Site1 Site2 Delta-0 (ms) Dist (cm) [place]mar (m/s) Left Median Motor (Abd Poll Brev) Wrist 6.5 0.1 Elbow Wrist 28.0 Elbow NR Left Ulnar Motor (Abd Dig Minimi) Wrist 2.2 4.3 A Elbow Wrist 4.9 29.0 59 A Elbow 7.1 3.3 F Wave Studies NR F-Lat (ms) L-R F-Lat (ms) Left Median (Mrkrs) (Abd Poll Brev) 28.19 Left Ulnar (Mrkrs) (Abd Dig Min) 26.86 MTDD
== END 2024-03-24 08:30 | disposition home or self-care (01) ==
PROVIDERS: PCP Family Medicine Adolescent Medicine; Visit Provider Family Medicine Adolescent Medicine
DX: R20.2 Paresthesia of skin (principal); G56.02 Carpal tunnel syndrome, left upper limb
CPT/HCPCS: 95909

== ENCOUNTER 2024-04-06 09:35 | Outpatient (CLI) | payer MEDICARE, SELFPAY ==
--- NOTE | 2024-04-06 10:00 | ECG_ITS ---
Test Date: 2024-04-06 10:08:11 Measurements Intervals [place] Rate: 81 P: 0 ND: 0 QRS: -4 QRSD: 87 T: 95 QT: 377 QTc: 438 Interpretive Statements WANDERING PACEMAKER VENTRICULAR PREMATURE COMPLEX NONSPECIFIC T-WAVE ABNORMALITY No previous ECG available for comparison Electronically Signed On 04-06-2024 14:36:18 CDT by Kane Owusu M.D.
== END 2024-04-06 09:36 | disposition home or self-care (01) ==
PROVIDERS: PCP Family Medicine Adolescent Medicine; Visit Provider Orthopaedic Surgery
DX: I49.8 Other specified cardiac arrhythmias (principal); I49.3 Ventricular premature depolarization; R94.31 Abnormal electrocardiogram [ECG] [EKG]; G56.02 Carpal tunnel syndrome, left upper limb
CPT/HCPCS: 93005

== ENCOUNTER 2024-05-18 10:08 | Outpatient (CLI) | payer MEDICARE, SELFPAY ==
--- NOTE | ~2024-05-18 | NM_ITS ---
EXAMINATION: NM jonel stress w perfusion DATE: 05/18/2024 12:12 INDICATION: Encounter for preoperative evaluation TECHNIQUE: Rest images were obtained following intravenous administration of 8.9 mCi Tc99m tetrofosmi n (Myoview). The patient was infused intravenously with Lexiscan (Regadenoson). Then, 28.4 mCi Tc99m tetrofosmin (Myoview) was administered intravenously, and stress images were obtained. Data was recon structed into short axis and horizontal and vertical long axis SPECT images. Gated SPECT images were also obtained. COMPARISON: None. FINDINGS: There is no definite reversible or fixed perfusion abnormality to suggest ischemia or infar ction. There is normal left ventricular chamber size, wall motion and ejection fraction. Left ventr icular ejection fraction measures 65%. IMPRESSION: 1. Normal myocardial perfusion at rest and during stress. 2. Left ventricular ejection fraction measuring 65%. Reviewed, dictated and finalized at location A. BUILDER
--- NOTE | 2024-05-18 10:15 | EST_ITS ---
Patient Info Name: Fiona Rodríguez Age: 73 years : 1950 Gender: Female Ht: 66 in Wt: 165 lbs BSA: 1.88 m2 HR: 71 bpm BP: 140 / 73 mmHg Exam Date: 05/18/2024 11:05 AM Exam Location: [facility] Patient Status: Outpatient Admit Date: 05/18/2024 Staff Ordering Physician: Elan Castro DO Attending Provider: Elan Castro DO Exercise Technologist: Ayesha Irwin RDCS Exercise Physician: Elan Castro DO Exam Type: CA stress jonel w NM Study Info A regadenoson stress test was performed. Summary 1. 1. Negative lexiscan stress test for ischemic ST changes by ECG criteria. 2. 2. Baseline hypertension. 3. 3. Nuclear scan to follow and will be reported separately. Please correlate with it. 4. 4. Patient informed of the above results. Protocol: Lexiscan Stress ECG Details Stage: REST Duration (min): 1 min : 13 sec HR (bpm): 71 SBP (mmHg): 140 DBP (mmHg): 73 Stage: REST Duration (min): 8 min : 27 sec HR (bpm): 70 SBP (mmHg): 140 DBP (mmHg): 73 Stage: STAGE 1 Duration (min): 1 min : 0 sec HR (bpm): 81 SBP (mmHg): 156 DBP (mmHg): 72 Stage: RECOVERY Duration (min): 1 min : 0 sec HR (bpm): 88 SBP (mmHg): 156 DBP (mmHg): 72 Stage: RECOVERY Duration (min): 2 min : 0 sec HR (bpm): 84 SBP (mmHg): 156 DBP (mmHg): 72 Stage: RECOVERY Duration (min): 3 min : 0 sec HR (bpm): 106 SBP (mmHg): 158 DBP (mmHg): 75 Stage: RECOVERY Duration (min): 3 min : 43 sec HR (bpm): 111 SBP (mmHg): 158 DBP (mmHg): 75 Rest HR: 70 bpm Peak HR: 111 bpm Rest Sys BP: 140 mmHg Peak Sys BP: 158 mmHg Max Pred HR: 147 bpm % Max Pred HR: 76 % Target HR: 125 bpm Max RPP: 17,538 bpm*mmHg Termination Reason: Completed protocol Cardiac Symptoms: Shortness of breath, Headache Total Time: 1 min : 0 sec Rest Garcia BP: 73 mmHg Peak Garcia BP: 75 mmHg Total Dose: 0.4 mg Resting ECG Sinus rhythm, borderline T wave in ant/inf leads. Stress ECG No ST changes. Arrhythmias None. Report Signatures
== END 2024-05-18 10:09 | disposition home or self-care (01) ==
PROVIDERS: PCP Family Medicine Adolescent Medicine; Visit Provider Internal Medicine Cardiovascular Disease
DX: Z01.810 Encounter for preprocedural cardiovascular examination (principal)
CPT/HCPCS: 78452; 93017; A9502; J2785

== ENCOUNTER 2024-08-07 11:35 | Outpatient (CLI) | payer MEDICARE, SELFPAY ==
--- NOTE | ~2024-08-07 | MM_ITS ---
EXAMINATION: MM screening coy BI w jacqueline HISTORY: Screening TECHNIQUE: Craniocaudal and mediolateral oblique 3-D tomosynthesis images were obtained and synthetic 2-D images were generated. CAD analysis was submitted and interpreted. COMPARISON: Comparison to multiple prior studies sequentially, with oldest reviewed study dated 04/24. BREAST PARENCHYMAL COMPOSITION: Not dense: There are scattered areas of fibroglandular density. FINDINGS: There is no evidence of suspicious mass, calcification, or architectural distortion to sugg est malignancy in either breast. There has been no suspicious interval change. IMPRESSION: 1. No mammographic evidence of malignancy. 2. Recommend routine screening mammography in one year. BI-RADS Category 1: Negative Reviewed, dictated and finalized at location B. NER HYDRAULIC
== END 2024-08-07 11:36 | disposition home or self-care (01) ==
LOC: MICIMG 11:36
PROVIDERS: PCP Family Medicine Adolescent Medicine; Visit Provider Family Medicine Adolescent Medicine
DX: Z12.31 Encounter for screening mammogram for malignant neoplasm of breast (principal)
CPT/HCPCS: 77063; 77067

== ENCOUNTER 2024-11-18 12:46 | Outpatient (CLI) | payer MEDICARE, SELFPAY ==
--- NOTE | ~2024-11-18 | XR_ITS ---
Thoracic spine: Clinical Indication: Back pain AP and lateral views were performed. No fracture is seen. There is normal alignment of the vertebrae. The intervertebral disc spaces appe ar normal. Paravertebral soft tissues appear normal. Impression: No significant abnormalities noted. Reviewed, dictated and finalized at [facility]. Impression: No significant abnormalities noted.
--- NOTE | ~2024-11-18 | XR_ITS ---
Lumbosacral Spine: AP and lateral views Clinical History: Pain Findings: The normal lordotic curve is maintained. No fracture identified. There is 5 mm anterolisthe sis of L4 over L5. There is severe degenerative disc narrowing at L2-L3. There is severe facet arthro hesham throughout the lumbar spine. The sacroiliac joints are normally outlined. Impression: Moderate to advanced degenerative spondylosis, as above. 5 mm anterolisthesis of L4 over L5. Reviewed, dictated and finalized at location M. Impression: Moderate to advanced degenerative spondylosis, as above. 5 mm anterolisthesis of L4 over L5.
== END 2024-11-18 12:47 | disposition home or self-care (01) ==
LOC: MICIMG 12:48
PROVIDERS: PCP Family Medicine Adolescent Medicine; Visit Provider Family Medicine Adolescent Medicine
DX: M47.896 Other spondylosis, lumbar region (principal)
CPT/HCPCS: 72070; 72100

== ENCOUNTER 2024-12-30 01:51 | Emergency (ER) | payer MEDICARE, SELFPAY ==
[2024-12-30] VITALS (19 sets, daily range): BP systolic 137–176; BP diastolic 54–123; PULSE 65–102; RESP 11–35; TEMP 36.4–36.6; O2SAT 93–100
--- NOTE | ~2024-12-30 | XR_ITS ---
Portable chest x-ray Comparison: 09/14/2023 Clinical History: Shortness of breath Findings: Lungs are clear, without focal consolidation or pleural effusion. Cardiomediastinal silho uette is stable. Bones and soft tissues are unremarkable. Impression: Clear lungs. Reviewed, dictated and finalized at location . Impression: Clear lungs.
--- NOTE | 2024-12-30 02:09 | ECG_ITS ---
Test Date: 2024-12-30 02:44:32 Measurements Intervals [place] Rate: 73 P: 54 NE: 138 QRS: 36 QRSD: 81 T: 63 QT: 412 QTc: 457 Interpretive Statements SINUS RHYTHM WITH OCCASIONAL VENTRICULAR PREMATURE COMPLEXES NONSPECIFIC ST & T-WAVE ABNORMALITY ABNORMAL ECG Compared to ECG 04/06/2024 10:08:11 NO SIGNIFICANT CHANGE Electronically Signed On 12-30-2024 07:53:23 CDT by Jordan Ta M.D.
[2024-12-30 02:33] LABS: Hematocrit 38.9 % (37.0-47.0); Hemoglobin 12.6 g/dL (12.0-15.0); Immature Granulocyte Percent A 0.3 % (0-0.5); Lymphocytes Absolute Auto 2.42 K/mm3 (0.9-3.2); Mean Corpuscular HGB Conc 32.4 g/dl (32-36); Mean Corpuscular Hemoglobin 28.5 pg (26-34); Mean Corpuscular Volume 88.0 fl (80-100); Nucleated Red Blood Cells Absolute Auto 0.000 K/mm3 (0.0-0.012); Nucleated Red Blood Cells Perc 0.0 % (0.0-0.2); Platelet Count Result 261 k/mm3 (150-375); Red Blood Count 4.42 M/mm3 (4.2-5.4); White Blood Count 11.5 K/mm3 (4.5-10.0)
[2024-12-30] MEDS: HYDROcodone/acetaminophen (*CRX) 7.5-325 MG TABLET 1 TAB PO (02:40)
[2024-12-30 02:43] LABS: Magnesium 1.5 mg/dL (1.6-2.3)
--- OUTSIDE RECORDS SUMMARY | 2024-12-30 02:44 | XMS_ITS | Data Portability ---
Author Organization [facility], Main Office Address [address] [place] [address] Care Team Providers Care Jet Handler Name Role Phone ANETTE CUELLAR Primary Care Provider ANETTE CUELLAR Referring Provider Assessment Encounter Date Assessment Date Assessment LastModified by Organization Details LastModified Time 02/14/2024 02/14/2024 73-year-old patient presents today with left arm numbness, tingling, weakness, and pain that has been going on for about 2 years but has recently gotten worse in the last 3 months. She rates her pain 8/10. She states that her basin operator strength has become weak and she often drops things. She has issues with her dexterity as well. She states that 2 years ago she had carpal and cubital tunnel release on the right arm. his worked well for her. She is interested in having it done on the left side but did not want to go back to her previous surgeon. For treatment she has tried wearing a brace, PT exercises, and anti-inflammatori es, which has not helped. review of systems per patient questionnaire Imaging: X-rays reviewed show no acute bony abnormality or fracture. 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 Physical exam: Positive Phalen's at wrist. Positive Tinel's at wrist and elbow. Decreased sensation in the middle finger. Weak basin operator strength with finger squeeze. No issues with wrist or elbow range of motion. She would like to have carpal and cubital tunnel releases. She states that she is a diabetic and is unsure of her last A1c. She is getting blood work done next week and seeing her primary care doctor. We discussed that she should call and make an appointment to come back and see Dr. Chandra to discuss surgery after she has her results and is cleared by her primary for surgery. She is in agreement with this plan. Not available 02/14/2024 11:37:27 04/01/2024 04/01/2024 73-year-old female presents for follow-up of her left hand. She reports feeling worse in her wrist and elbow, currently rates her pain as 8/10. She has EMG results. She has been wearing a night splint without any improvement. He has a history of diabetes, her current A1c level of 6.7 and has been cleared by her PCP for surgery. She still has pain at night which disrupts her sleep. The braces have not helped for that. She has numbness and tingling throughout her fingers primarily in the ring and middle fingers. Positive Tinel's and Phalen's at the wrist. Positive Tinel's at the elbow. Positive elbow flexion. No ulnar nerve subluxation EMG reviewed, demonstrating severe left carpal tunnel, no ulnar nerve neuropathy identified Given her EMG results and clinical exam findings, she wants to proceed with surgery for carpal tunnel release, as well as cubital tunnel release. Risks, benefits, and alternatives to surgery were discussed with the patient. Risks include but are not limited to pain, stiffness, infection, bleeding, blood clot, injury to other structures including nerves or blood vessels, need for future surgery, and anesthesia risks. We discussed the goal of surgery is to improve symptoms but there is no guarantee of improvement and it is possible the patient's condition is worse after surgery. Patient agreed and would like to proceed. [email or web address] Not available 04/03/2024 15:52:16 06/22/2024 06/22/2024 74-year-old patient presents today for 1st postop follow-up after left carpal and cubital tunnel releases on 06/09/[address] Chandra. She states she is doing well overall, 0/10 pain. She states that the numbness and tingling has resolved except for sometimes it returns in her middle finger. She is no longer taking medications for pain. Physical exam: Incisions are clean dry and intact without signs and symptoms of infection. Sutures removed and Steri-Strips were placed. No issue with wrist or elbow range of motion. Some tenderness with palpitation around the incision sites. Sensation intact throughout. No issues at this time. We discussed incisional care and when to call the office if there are changes. She can continue with anti-inflammatori es as needed for pain. We will see her back in 4 weeks for incisional recheck. She is in agreement with this plan. Not available 06/22/2024 15:31:38 07/20/2024 07/20/2024 HPI: 74 year old female presents today for a follow-up appointment after undergoing left carpal and cubital tunnel releases on June 09, 2024, with Dr. Chandra. She is currently five weeks post-surgery and reports that she is doing well. Currently rates her pain as 0/10. Denies any numbness or tingling. Physical Exam: General: Normal appearance. No acute distress. Inspection: Incisions well healed. No signs or symptoms of infection. Palpation: Nontender with palpitation around the incision site. Sensation: Sensation intact. Assessment & Plan: She is doing well and has no issues or concerns and can be released from our care. Follow Up: As needed if any new issues arise. All questions were answered. [email or web address] Not available 07/20/2024 14:11:55 Plan of Treatment Reminders Order Date Submit Date Provider Last Modified By Organization Details Last Modified Time Details Appointments None record ed. Lab None record ed. Referral None record ed. Procedures None record ed. Surgeries None record ed. Imaging XR, hand, 3 or more view 024 02/14/20 24 [email or web address] [facility], [address], [place], [address], 4 09:47:27 Medication Orders None record ed. Patient TargetsNo targets recorded. Patient InstructionsNo instructions recorded. Reason for Referral None Reported. Results Created Date Observation Date Name Description Value Unit Range Abnormal Flag Note LastModifiedBy Organization Detail LastModifiedTime 02/14/20 24 XR, hand, 3 or more view No observ ation record ed. [email or web address] [facility] [address], [place], [address], 02/14/2024 11:32:10 03/24/20 24 03/24/2024 elect romyo gram + nerve condu ction study No observ ation record ed. [address], [place], [address], 03/24/2024 14:34:31 04/06/20 24 2019 chinmay aranda calvin No observ ation record ed. [address] (Neurology) [address] [facility] [address], [place], [address], 04/07/2024 08:12:10 Result Notes None recorded. Problems Name Problem SNOMED Code Status Onset Date Resolution Date Notes Provider Name and Address Organization Details Recorded Time Acquired trigger finger 3795467 Active Not Available [facility] 3 13:52:25 Pain in limb 86660978 Active Not Available [facility] 3 13:52:25 Pain of left hand 8889667010883 03 Active 2023 ARUNA Mckeon, [place] [facility] 4 10:49:56 Carpal tunnel syndrome of left wrist 0030268055669 02 Active 2023 Katedick rivera, [place] [facility] 4 12:02:04 Trigger finger of left hand 7606719852851 9107 Active 2024 ARUNA Mckeon, [place] [facility] 5 14:00:39 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 Procedures Surgical History Date Name Laterality Status Provider Name and Address Organization Details Recorded Time Hand completed ARUNA Mckeon [place] [facility] 07/10/2024 08:57:47 Knee Surgery completed ARUNA Mckeon [place] [facility] 02/14/2024 10:47:21 Hand completed ARUNA Mckeon [place] [facility] 02/14/2024 10:47:53 Gallbladder Surgery completed ARUNA Mckeon - [facility] 02/14/2024 10:48:36 Imaging Results None recorded. Procedure Notes None recorded. Medical Equipment None Reported. Allergies Allergen ID Allergen Name Allergen Category Reaction Reaction Severity Criticality Documentation Date Start Date Code Code System Note Provider Name and Address Organization Details Recorded Time 06969 Substance with sulfonami de structure and antibacte rial mechanism of action (substanc e) medicatio n Not available Not available Not available 08/22/2022 52723 8003 SNOMED Not Available [facility] 3 13:54:26 43646 Product containin g penicilli n (product) medicatio n Not available Not available Not available 08/22/2022 34419 8001 SNOMED Not Available [facility] 3 13:54:26 Medications Name Sig Start Date Stop Date Status Note LastModified by Organization Details LastModified Time prednisone 10 mg tablet TAKE 6 TABLETS BY MOUTH ONCE DAILY FOR 3 DAYS AND THEN 4 ONCE DAILY FOR 3 DAYS AND THEN 2 ONCE DAILY FOR 3 DAYS AND THEN 1 ONCE DAILY FOR 4 DAYS active Not Available Not Available No t Available doxycycline hyclate 100 mg capsule TAKE 1 CAPSULE BY MOUTH TWICE DAILY active Not Available Not Available No t Available atorvastati n 20 mg tablet 01/03 completed Not Available Not Available Not Available azithromyci n 250 mg tablet TAKE 2 TABLETS BY MOUTH ON DAY 1, AND THEN TAKE 1 TABLET BY MOUTH ONCE A DAY ON DAY 2 THROUGH DAY 5 02/13 completed Not Available Not Available Not Available fluconazole 150 mg tablet TAKE 1 TABLET NOW A SINGLE DOSE AND REPEAT IN 7 DAYS 02/13 completed Not Available Not Available Not Available clarithromy jimmy 500 mg tablet TAKE 1 TABLET BY MOUTH TWICE DAILY 02/13 completed Not Available Not Available Not Available hydrocodone 5 mg-acetamin ophen 325 mg tablet TAKE 1 TABLET BY MOUTH EVERY 6 HOURS active Not Available Not Available No t Available diltiazem CD 240 mg capsule,ext ended release 24 hr TAKE 1 CAPSULE BY MOUTH ONCE DAILY active Not Available Not Available No t Available donepezil 10 mg tablet 01/03 completed Not Available Not Available Not Available lisinopril 20 mg tablet 01/03 completed Not Available Not Available Not Available prednisone 20 mg tablet TAKE 2 TABLETS BY MOUTH ONCE DAILY FOR 4 DAYS 02/13 completed Not Available Not Available Not Available Anucort-HC 25 mg suppository INSERT 1 SUPPOSITO RY RECTALLY TWICE DAILY 02/13 completed Not Available Not Available Not Available diphenoxyla te-atropine 2.5 mg-0.025 mg tablet TAKE 1 TO 2 TABLETS BY MOUTH 4 TIMES DAILY NEEDED FOR DIARRHEA active Not Available Not Available No t Available prochlorper azine maleate 10 mg tablet TAKE 1 TABLET BY MOUTH 4 TIMES DAILY NEEDED FOR NAUSEA AND VOMITING active Not Available Not Available No t Available tramadol 50 mg tablet TAKE 1/2 TO 1 (ONE-HALF TO ONE) TABLET BY MOUTH TWICE DAILY NEEDED FOR PAIN active Not Available Not Available No t Available glimepiride 1 mg tablet TAKE 1 TABLET BY MOUTH IN THE MORNING WITH BREAKFAST active Not Available Not Available No t Available levothyroxi ne 100 mcg tablet 01/03 completed Not Available Not Available Not Available oxycodone-a cetaminophe n 5 mg-325 mg tablet TAKE 1 TABLET BY MOUTH THREE TIMES DAILY NEEDED FOR PAIN 02/13 completed Not Available Not Available Not Available lorazepam 0.5 mg tablet TAKE 1 TABLET BY MOUTH TWICE DAILY NEEDED FOR ANXIETY active Not Available Not Available No t Available pravastatin 10 mg tablet TAKE 1 TABLET BY MOUTH ONCE DAILY active Not Available Not Available No t Available pantoprazol e 40 mg tablet,ramona yed release TAKE 1 TABLET BY MOUTH TWICE DAILY active Not Available Not Available No t Available triamcinolo ne acetonide 0.1 % topical ointment 01/03 completed Not Available Not Available Not Available olopatadine 0.1 % eye drops 01/03 completed Not Available Not Available Not Available metronidazo le 0.75 % topical cream APPLY CREAM TOPICALLY TO AFFECTED AREA ONCE DAILY active Not Available Not Available No t Available lisinopril 30 mg tablet 01/03 completed Not Available Not Available Not Available diclofenac sodium 75 mg tablet,ramona yed release 01/03 completed Not Available Not Available Not Available hydrocortis one 2.5 % topical cream APPLY CREAM TO AFFECTED AREA TWICE DAILY NEEDED FOR ITCHING active Not Available Not Available No t Available pravastatin 20 mg tablet TAKE 1 TABLET BY MOUTH ONCE DAILY active Not Available Not Available No t Available mupirocin 2 % topical ointment 01/03 completed Not Available Not Available Not Available oxycodone-a cetaminophe n 7.5 mg-325 mg tablet TAKE 1 TABLET BY MOUTH THREE TIMES DAILY NEEDED FOR PAIN 02/13 completed Not Available Not Available Not Available paroxetine 40 mg tablet TAKE 1 TABLET BY MOUTH ONCE DAILY active Not Available Not Available No t Available ketoconazol e 2 % topical cream APPLY CREAM TOPICALLY TWICE DAILY active Not Available Not Available No t Available lisinopril 40 mg tablet TAKE 1 TABLET BY MOUTH ONCE DAILY active Not Available Not Available No t Available metformin ER 500 mg tablet,exte nded release 24 hr TAKE 3 TABLETS BY MOUTH ONCE DAILY active Not Available Not Available No t Available naproxen 500 mg tablet 01/03 completed Not Available Not Available Not Available levothyroxi ne 112 mcg tablet TAKE 1 TABLET BY MOUTH ONCE DAILY active Not Available Not Available No t Available paroxetine ER 25 mg tablet,exte nded release 24 hr 01/03 completed Not Available Not Available Not Available Estrace 0.01% (0.1 mg/gram) vaginal cream 01/03 completed Not Available Not Available Not Available escitalopra m 20 mg tablet 01/03 completed Not Available Not Available Not Available ezetimibe 10 mg tablet TAKE 1 TABLET BY MOUTH ONCE DAILY active Not Available Not Available No t Available rosuvastati n 5 mg tablet 01/03 completed Not Available Not Available Not Available memantine 10 mg tablet TAKE 1 TABLET BY MOUTH TWICE DAILY active Not Available Not Available No t Available nitrofurant oin monohydrate /macrocryst als 100 mg capsule TAKE 1 CAPSULE BY MOUTH EVERY 12 HOURS WITH A MEAL FOR 5 DAYS 03/31 completed Not Available Not Available Not Available galantamine ER 8 mg 24 hr capsule,ext ended release TAKE 1 CAPSULE BY MOUTH IN THE MORNING WITH BREAKFAST active Not Available Not Available No t Available Voltaren 1 % topical gel 01/03 completed Not Available Not Available Not Available Fluvirin 5126-5664 45 mcg (15 mcg x 3)/0.5 mL intramuscul ar suspension 01/03 completed Not Available Not Available Not Available Shingrix (PF) 50 mcg/0.5 mL intramuscul ar suspension, kit 01/03 completed Not Available Not Available Not Available Fluzone High-Dose 0143-0148 (PF) 180 mcg/0.5 mL intramuscul ar syringe ADM 0.5ML IM UTD 01/03 completed Not Available Not Available Not Available Breyna 80 mcg-4.5 mcg/actuati on HFA aerosol inhaler INHALE 2 PUFFS BY MOUTH TWICE DAILY active Not Available Not Available No t Available Vitals Date Recorded Body height Body mass index (BMI) Body weight Provider Name and Address Organization Details Last Updated DateTime 07/20/2024 167.64 cm 26.1 kg/m2 88184.96 g Rachel Traore [facility] [employer] [facility] 07/20/2024 13:59:49 Date Recorded Body height Body mass index (BMI) Body weight Provider Name and Address Organization Details Last Updated DateTime 02/14/2024 167.64 cm 26.1 kg/m2 77971.96 margie ARUNA Mckeon [employer] [facility] 02/14/2024 10:43:57 Date Recorded Body height Body mass index (BMI) Body weight Provider Name and Address Organization Details Last Updated DateTime 04/01/2024 167.64 cm 26.6 kg/m2 99336.74 g Rachel Traore [facility] [employer] [facility] 04/01/2024 11:29:40 Date Recorded Body height Body mass index (BMI) Body weight Provider Name and Address Organization Details Last Updated DateTime 06/22/2024 167.64 cm 26.1 kg/m2 69829.96 g Rachel Traore [facility] [employer] [facility] 06/22/2024 13:48:45 Social History Question Answer Notes LastModified by Organizat ion Details LastModified Time Tobacco Smoking Status Never Smoker ARUNA Mckeon [facility] 02/14/2024 10:47:03 What Was The Date Of Your Most Recent Tobacco Screening? 02/14/2024 [email or web address] Information not available 02/14/2024 Sex: Unknown Functional Status Question Answer Note LastModified by Organization D etails LastModified Time What is your level of alcohol consumption? Heavy [email or web address] Information not available 02/14/2024 Mental Status None recorded. Family History Relationship Description Onset Age of this Age Resolved Age Notes LastModified by Organization Details LastModified Time Mother Hypertensive disorder [email or web address] Not available 2023 10:46:38 Mother Diabetes mellitus [email or web address] Not available 2023 10:46:48 Medical History Condition Response ARTHRITIS Y DIABETES, TYPE Y HYPERTENSION Y Gynecological HistoryNo gynecological history recorded. Obstetrics History GPAL:G 0 P 0 0 0 0 Immunizations Vaccine Type Date Status Note Provider Nam e and Address Organization Details Recorded Time Influenza, high-dose, quadrivalent, PF 03/08/2020 completed Not Available [facility] 13:54:24 Past Encounters Encounter ID Performer Location Encounter Start Date Encounter Closed Date Diagnosis/Indication Diagnosis SNOMED-CT Code Diagnosis ICD10 Code Diagnosis Note [id number] Kevin Chandra MD [facility] [address] [place] [address] 02/14/2024 10:11:03 02/14/2024 11:04:22 Pain of left hand 5660346712 47812 M79.521 [id number] Kevin Chandra MD [facility] [address] [place] [address] 04/01/2024 11:27:21 04/01/2024 12:14:02 Pain of left hand 2642228511 44564 M79.813 [id number] Kevin Chandra MD [facility] [address] [place] [address] 06/22/2024 13:45:22 06/22/2024 14:05:10 Acquired trigger finger 3679794 M65.30 Pain of left hand 510376 7637 05806 M79.860 [id number] Kevin Chandra MD [facility] [address] [place] [address] 07/20/2024 13:55:42 07/20/2024 14:06:26 Carpal tunnel syndrome of left wrist 6921769464 75853 G56.02 Ulnar nerv e entrapment at elbow 358651534 G56.22 Health Concerns Section Related Observation LastModified by Organization Detai ls LastModified Time None Recorded Concern Status LastModified by Organization Details LastModified Time None Recorded Advance Directives Directive None Recorded Payers Insurance Date Sequence Insurance Name Policy Number Policy Nash Covered Member ID Nash Member ID Guarantor Name 07/17/2024 1 [place] Fiona Rodríguez [id number] Fiona Rodríguez 02/14/2024 2 [facility] IN[employer] OF [place] - PLAN G (MEDICARE SUPPLEMENT) Fiona Rodríguez [id number] Fiona Rodríguez OBGyn Episode No OBEpisode recorded.
--- OUTSIDE RECORDS SUMMARY | 2024-12-30 02:44 | XMS_ITS | Continuity of Care Document ---
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 [address] , [address], [place], [address], [place]. tel:[phone] Family History Family Member Type Diagnosis Age At Onset No Information Payers Payer name Insurance type Covered republican ID Authoriza tion(s) [facility] CI [id number] Social History Type Description Quantity Date Captured [...]
--- OUTSIDE RECORDS SUMMARY | 2024-12-30 02:44 | XMS_ITS | Clinical Summary ---
Author Organization [email or web address] [id number] [facility] Address [address] [place] [address] Care Team Providers Care Self Sealing Fuel Tank Builder Name Role Phone Que Malcolm MD Primary Care Provider [phone] Allergies Active Allergy Reactions Criticality Noted Date Comments Morphine Rash,Itching Low 09/13/2020 Penicillins Rash,Itching Low 09/13/2020 Rosuvastatin Rash,Itching Low 09/13/2020 Sulfa (Sulfonamide Antibiotics) Rash,Itching Low Medications PARoxetine HCl (PAXIL) 30 mg tablet Take 30 mg by mouth daily. Active levothyroxine 112 mcg tablet Take 112 mcg by mouth daily in the morning. Active ezetimibe (ZETIA) 10 mg tablet Take 10 mg by mouth daily. Active metFORMIN (GLUCOPHAGE XR) 500 mg Extended Release 24 hour tablet Take 500 mg by mouth daily. Active busPIRone (BUSPAR) 15 mg Tablet Take 15 mg by mouth. Active diltiaZEM (CARDIZEM CD) 240 mg Controlled Delivery 24 hour capsule Take 240 mg by mouth daily. Active pantoprazole (PROTONIX) 40 mg Tablet, Delayed Release (E.C.) Take 40 mg by mouth daily. Active oxyCODONE-acetam inophen (PERCOCET) 7.5-325 mg Tablet Take 1 Tablet by mouth every 4 hours as needed for Pain, Moderate. 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 Gender Identity Not on file Sexual Orientation Not on file Last Filed Vital Signs Vital Sign Reading Time Taken Comments Blood Pressure - - Pulse - - Temperature - - Respiratory Rate - - Oxygen Saturation - - Inhaled Oxygen Concentration - - Weight 82.6 kg (182 lb) 09/13/2020 10:13 AM CDT Height 167.6 cm (5' 6) 09/13/2020 10:13 AM CDT Body Mass Index 29.38 09/13/2020 10:13 AM CDT Plan of Treatment Health Maintenance Due Date Last Done Comments DIABETES ANNUAL FOOT EXAM 1968 DIABETES ANNUAL RETINAL EXAM 1968 DIABETES HBA1C Q 6 MONTHS 1968 DIABETES MICROALBUMIN ANNUAL SCREEN 1968 LDL CHOLESTEROL ANNUAL 1968 DTAP/TDAP/TD VACCINES (1 - Tdap) 1969 PNEUMOCOCCAL VACCINE 50+ YEARS (1 of 2 - PCV) 06/10/19 69 BREAST CANCER SCREENING 1990 COLORECTAL SCREENING 1995 Colorectal Cancer Screening 1995 FIT-DNA Q 3 years 1995 FIT/FOBT Q 1 year 1995 Flex Sig/CT Colonography Q 5 years 1995 ZOSTER VACCINE (1 of 2) 2000 OSTEOPOROSIS SCREENING 2015 INFLUENZA VACCINE (#1) 2025 RSV VACCINE (60+ or ) (1 - 1-dose 75+ series) 2025 Care Teams Self Sealing Fuel Tank Builder Relationship Specialty Start Date End Date Que Malcolm MD PCP - General Family Practice 09/07/20
[2024-12-30 02:48] LABS: Alanine Aminotransferase 19 U/L (6-35); Albumin Level 4.4 g/dL (3.5-5.1); Alkaline Phosphatase 107 U/L (38-126); Anion Gap 14 mmol/L (4-12); Aspartate Amino Transferase 27 U/L (14-36); Bilirubin,Total 0.9 mg/dL (0.2-1.3); Blood Urea Nitrogen 11 mg/dL (7-17); Calcium 9.5 mg/dL (8.4-10.2); Carbon Dioxide 21 mmol/L (22-30); Chloride 104 mmol/L (98-107); Estimated CRCL calculation 44 ml/min; Estimated Glomerular Filt Rate 51; Glucose 169 mg/dL (65-110); Potassium 3.5 mmol/L (3.4-5.0); Sodium 139 mmol/L (137-145); Total Protein 6.9 g/dL (6.3-8.2)
--- NOTE | 2024-12-30 02:48 | ED.ANXIETY ---
HPI - Anxiety General Chief Complaint: Anxiety Stated Complaint: ANXIETY, HYPERVENTILATING S/P TAKING NEW GUMMIES Time Seen by Provider: 12/30/24 02:09 History of Present Illness HPI narrative: Patient is a 74-year-old female who presents to the emergency department this evening complaining of right-sided sciatic and panic attack. EMS was called initially as patient was having panic attack after taking 20 mg of marijuana gummies. States that she normally does take 20 mg of gummy but today she took different kinds and she thought it was the same dose but the dose was much higher. Upon EMS arrival they noted that the patient was hyperventilating. Upon arrival to our emergency department, patient did appear to be calmer, no longer hyperventilating, however, she is complaining of severe right-sided sciatic pain. She states that she has chronic sciatica which he takes Flexeril at home for and her marijuana gummies. Denies any recent falls or trauma. No additional symptoms or concerns at this time. Related Data Allergies Allergy/AdvReac Type Severity Reaction Status Date / Time rosuvastatin Allergy Severe RASH, Verified 10/23/24 11:19 ITCHING adhesive tape Allergy Intermediate Rash Verified 10/23/24 11:19 Quinolones Allergy Mild RASH Verified 10/23/24 11:19 Sulfa (Sulfonamide Allergy Mild RASH, Verified 10/23/24 11:19 Antibiotics) ITCHING codeine Allergy Unknown Unknown Verified 10/23/24 11:19 Penicillins Allergy Unknown Unknown Verified 10/23/24 11:19 doxycycline Allergy Vomiting Verified 10/23/24 11:19 celecoxib AdvReac Severe Abdominal Verified 10/23/24 11:19 Pain pravastatin AdvReac Severe Vomiting Verified 10/23/24 11:19 donepezil AdvReac Intermediate vomiting Verified 10/23/24 11:19 erythromycin base AdvReac Intermediate unknown Verified 10/23/24 11:19 metformin AdvReac Intermediate unknown Verified 10/23/24 11:19 prednisone AdvReac Intermediate Vomiting & Verified 10/23/24 11:19 diarrhea venlafaxine AdvReac Intermediate unknown Verified 10/23/24 11:19 metformin AdvReac Intermediate Diarrhea Uncoded 10/23/24 11:19 Review of Systems Review of Systems: All systems are reviewed and are negative unless stated otherwise in the HPI. [facility] Past Medical History Medical History Dementia of the Alzheimer's type Carpal tunnel syndrome COVID-19 Normal colonoscopy 09/10 Repeat 09/20 Depression GERD (gastroesophageal reflux disease) Hypothyroid Diabetes Surgical History Surgical History Hx of cholecystectomy History of partial hysterectomy Social History Social History Smoking status: Never smoker Second hand tobacco smoke exposure: Yes Alcohol intake: never Substance use: current Substance use type: other Other substance usage details: gummies Do You Feel Safe in your Home?: Yes Lack of Transportation: No Lack of Food: Never True Current Housing: I Have Housing Concerned About Future Housing: No Difficulty Paying Gas/Electric Bills: No Difficulty Paying for Meds: No Currently Unemployed: No Education: High School Diploma/GED Difficulty w/ Childcare or Family Care: No Living arrangements: with family Occupation/Education: retired Gender identity (if verbalized by the patient): Female Sexual Orientation (if Verbalized by the Patient): Straight or Heterosexual Spiritual care concerns: No Agree to blood products: Yes Exam Narrative: General: Alert, awake, afebrile, in moderate distress secondary to pain, anxious. HEENT: PERRL, no rhinorrhea, no post nasal drip, oropharynx clear. Neck: Trachea midline, no JVD, no lymphadenopathy. Cardiovascular: Regular rate and rhythm, no murmurs, rubs or gallops, no peripheral edema. Respiratory: Clear to auscultation bilaterally, no tachypnea, no wheezing, no rhonchi, no rubs, no respiratory distress. Abdomen: Soft, nontender, nondistended, no rebound, no guarding, no peritoneal signs. Musculoskeletal: No joint swelling or deformity, normal muscle tone, tenderness palpation over the right SI joint, no midline tenderness to palpation over the lower lumbar spine. Skin: No rashes or petechia, no signs of infection. Psychiatric: Alert and oriented, normal behavior and judgment for situation. Neurological: Alert and oriented to person, place, and time. Follows all commands. No focal deficits, speech is clear and fluent. Course Vital Signs Vital signs: Vital Signs Temperature 97.6 F 12/30/24 01:49 Pulse Rate 77 12/30/24 01:49 Respiratory Rate 21 H 12/30/24 01:49 Blood Pressure 150/54 H 12/30/24 01:49 Pulse Oximetry 100 12/30/24 01:49 Oxygen Delivery Room Air 12/30/24 01:49 Temperature 97.6 F 12/30/24 01:49 Pulse Rate 71 12/30/24 02:46 Respiratory Rate 12 12/30/24 02:46 Blood Pressure 161/80 H 12/30/24 02:46 Pulse Oximetry 100 12/30/24 02:46 Oxygen Delivery Room Air 12/30/24 01:49 MDM - Anxiety MDM Narrative Medical decision making narrative: The patient was evaluated by myself in the emergency department. History is obtained from patient who is an independent historian and physical exam was performed. External medical records were reviewed at this time. IV was established and pertinent tests were ordered. Patient was administered an oral Snover 7.5-325 mg for her severe chronic right-sided sciatic pain. EKG was obtained which revealed sinus rhythm rate of 73 beats per minute, no evidence of acute ischemia. EKG was independently interpreted by me and is currently pending official cardiology read. Laboratory results obtained revealing no acute process. Imaging studies obtained included CXR which was independently interpreted by me revealing no acute cardiopulmonary process, which is pending final radiology interpretation. Differential diagnosis considerations include anxiety, acute stress reaction, drug intoxication, sciatica, musculoskeletal strain. Comorbidities impacting this visit include history of chronic sciatica. I have evaluated and discussed social determinants of health with the patient that could potentially impact subsequent diagnosis and treatment plans. On repeat assessment of the patient, reevaluation revealed that the patient is doing well and is in no acute distress. Patient symptoms have improved since she arrived to our emergency department. Repeat vital signs were all reviewed and noted to be stable. Differential diagnosis and treatment plan were discussed with the patient at bedside. Patient agrees with discussion and after shared medical decision making agrees with discharge. All questions were answered to the patient's satisfaction. Patient will follow up with her PCP in 3-5 days. Patient was provided with strict return precautions and instructed to return to the emergency department if any new or worsening symptoms develop. The patient was discharged in stable condition. Lab Data 12/30/24 02:24 12/30/24 02:24 Labs: Lab Results 07/09/25 Range/Units 02:24 WBC 11.5 H (4.5-10.0) K/mm3 RBC 4.42 (4.2-5.4) M/mm3 Hgb 12.6 (12.0-15.0) g/dL Hct 38.9 (37.0-47.0) % MCV 88.0 (80-100) fl MCH 28.5 (26-34) pg MCHC 32.4 (32-36) g/dl RDW 14.6 H (11.5-14.5) % Plt Count 261 (150-375) k/mm3 MPV 9.9 (7.4-10.4) fl Immature Gran % (Auto) 0.3 (0-0.5) % Neut % (Auto) 68.7 (45.5-73.1) % Lymph % (Auto) 21.1 (18.3-44.2) % Cook % (Auto) 7.5 (2.6-8.5) % Eos % (Auto) 2.0 (0-4.4) % Baso % (Auto) 0.4 (0.2-1.2) % Lymph # (Auto) 2.42 (0.9-3.2) K/mm3 Cook # (Auto) 0.9 H (0.1-0.6) K/mm3 Eos # (Auto) 0.2 (0-0.3) K/mm3 Baso # (Auto) 0.1 (0.0-0.1) K/mm3 Abs Immat Gran (auto) 0.03 (0.00-0.031) K/mm3 Absolute Neuts (auto) 7.9 H (1.3-6.7) K/mm3 Absolute Nucleated RBC 0.000 (0.0-0.012) K/mm3 Nucleated RBC % 0.0 (0.0-0.2) % Sodium 139 (137-145) mmol/L Potassium 3.5 (3.4-5.0) mmol/L Chloride 104 (98-107) mmol/L Carbon Dioxide 21 L (22-30) mmol/L Anion Gap 14 H (4-12) mmol/L BUN 11 (7-17) mg/dL Creatinine 1.06 H (0.7-1.0) mg/dL Estim Creat Clear Calc 44 ml/min Estimated GFR 51 L (59 - ) Glucose 169 H (65-110) mg/dL Calcium 9.5 (8.4-10.2) mg/dL Magnesium 1.5 L (1.6-2.3) mg/dL Total Bilirubin 0.9 (0.2-1.3) mg/dL AST 27 (14-36) U/L ALT 19 (6-35) U/L Alkaline Phosphatase 107 (38-126) U/L Total Protein 6.9 (6.3-8.2) g/dL Albumin 4.4 (3.5-5.1) g/dL Discharge Plan Discharge Clinical Impression: Anxiety, Right sided sciatica Patient Disposition: Home Condition: Improved Instructions: Antibiotic Form, Sciatica (ED) Additional Instructions: Please follow-up with the family doctor within the next 3-5 days. Return emergency department if any new or worsening symptoms develop. Patient Language: Spanish Prescriptions: New oxycodone-acetaminophen [Percocet] 5-325 mg tablet 1 tablet PO Q6H PRN (Reason: pain) Qty: 8 0RF No Action galantamine 8 mg capsule,ext rel. pellets 24 hr 16 mg PO QAM Qty: 90 3RF Rx Instructions: administer with breakfast memantine 10 mg tablet 10 mg PO BID Qty: 180 3RF hydrocortisone 2.5 % cream 1 applic topical BID PRN (Reason: itching) Qty: 60 2RF ketoconazole 2 % cream 1 applic topical BID Qty: 30 0RF Rx Instructions: For yeast mupirocin [Centany] 2 % ointment 1 applic topical BID Qty: 15 1RF diltiazem HCl 240 mg capsule,extended release 24hr 240 mg PO DAILY Qty: 90 3RF diphenoxylate-atropine [Lomotil] 2.5-0.025 mg tablet See Rx Instructions PO QID PRN (Reason: diarrhea) Qty: 30 1RF Rx Instructions: Take 1 0r 2 tablets PO four times daily PRN; ezetimibe 10 mg tablet 10 mg PO DAILY Qty: 90 3RF glimepiride 1 mg tablet 1 mg PO DAILY Qty: 90 2RF levothyroxine 112 mcg tablet 112 mcg PO DAILY Qty: 90 3RF lisinopril 40 mg tablet 40 mg PO DAILY Qty: 90 3RF pantoprazole 40 mg tablet,delayed release (DR/EC) 40 mg PO BID Qty: 180 3RF paroxetine HCl 40 mg tablet 40 mg PO DAILY Qty: 90 3RF tramadol 50 mg tablet See Rx Instructions PO BID PRN (Reason: pain) Qty: 80 2RF Rx Instructions: Take 1/2 to 1 orally twice a day PRN; metronidazole 0.75 % cream 1 applic topical DAILY Qty: 45 1RF albuterol sulfate 90 mcg/actuation HFA aerosol inhaler See Rx Instructions .ROUTE .COMPLEX Qty: 9 2RF Dose Instruction: INHALE 2 PUFFS BY MOUTH EVERY 4 HOURS NEEDED FOR SHORTNESS OF BREATH OR WHEEZING Rx Instructions: INHALE 1-2 PUFFS BY MOUTH EVERY 4-6 HOURS NEEDED FOR SHORTNESS OF BREATH OR WHEEZING budesonide-formoterol [Breyna] 80-4.5 mcg/actuation HFA aerosol inhaler See Rx Instructions .ROUTE .COMPLEX Qty: 11 1RF Dose Instruction: Inhale 2 puffs by mouth twice daily Rx Instructions: Inhale 2 puffs by mouth twice daily lorazepam 0.5 mg tablet 0.5 mg PO BID PRN (Reason: anxiety) Qty: 40 0RF prochlorperazine maleate 10 mg tablet 10 mg PO QID PRN (Reason: nausea and vomiting) Qty: 20 0RF cyclobenzaprine 10 mg tablet 10 mg PO TID PRN (Reason: muscle spasm) Qty: 20 0RF pioglitazone 30 mg tablet 45 mg PO DAILY Qty: 135 1RF Follow-up/Referrals: Que Malcolm MD [Primary Care Provider] - 3 Days Time of Disposition: 02:51
[2024-12-30] MEDS: MAGNESIUM SULF 1 GM/D5W 100 ML 1 GM/100 ML BAG IVPB (03:02)
== END 2024-12-30 05:19 | disposition home or self-care (01) ==
PROVIDERS: Emergency Provider Emergency Medicine; PCP Family Medicine Adolescent Medicine
DX: M54.31 Sciatica, right side (principal); F41.9 Anxiety disorder, unspecified; F03.90 Unspecified dementia, unspecified severity, without behavioral disturbance, psychotic disturbance, mood disturbance, and anxiety; F32.A Depression, unspecified; K21.9 Gastro-esophageal reflux disease without esophagitis; E03.9 Hypothyroidism, unspecified; E11.9 Type 2 diabetes mellitus without complications
CPT/HCPCS: 36415; 71045; 80053; 83735; 85025; 93005; 96365; 99284; A9270; J3475

== ENCOUNTER 2025-01-12 09:18 | Outpatient (CLI) | payer MEDICARE, SELFPAY ==
--- NOTE | ~2025-01-12 | XR_ITS ---
EXAM/ PROCEDURE: XR lumbar spine min 4V - 01/12/2025 9:23 CDT HISTORY: 74 years old Female with Lumbar radicular pain COMPARISON: None available TECHNIQUE: Three view(s) FINDINGS/ IMPRESSION: Diffuse osteopenia limiting evaluation of nondisplaced fracture. Cholecystectomy clips are seen. There are no fractures or dislocations.Multilevel degenerative changes are seen. Reviewed, dictated and finalized at location A.
== END 2025-01-12 09:19 | disposition home or self-care (01) ==
LOC: MICIMG 09:19
PROVIDERS: PCP Family Medicine Adolescent Medicine; Visit Provider Nurse Practitioner Family
DX: M85.88 Other specified disorders of bone density and structure, other site (principal); M47.816 Spondylosis without myelopathy or radiculopathy, lumbar region; Z90.49 Acquired absence of other specified parts of digestive tract
CPT/HCPCS: 72110

== ENCOUNTER 2025-01-19 12:21 | Outpatient (CLI) | payer MEDICARE, SELFPAY ==
--- NOTE | ~2025-01-19 | MR_ITS ---
MRI of the lumbar spine Clinical History: Radiculopathy Technique: Axial T2-weighted images, and sagittal T1-weighted, T2-weighted, and and T2 fat-sat images were acquired. Comparison: 03/27/2023 Findings: There is acute mild to moderate compression fracture of T12, with loss of height and extens lori marrow edema. Fractures at the superior endplate region. No other fracture seen in the lumbar spi ne otherwise. There is minimal grade 1 retrolisthesis of L2 over L3. At L1-L2, there is no disc bulge or herniation. There is moderate to advanced facet hypertrophy. No s joanna canal stenosis or neural foraminal narrowing. At L2-L3, there is severe degenerative disc narrowing. There is disc bulge with severe facet arthropa thy. There is mild central canal stenosis. There is severe right neural foraminal narrowing, and mode rate left neural foraminal narrowing. At L3-L4, there is diffuse disc protrusion at the left foraminal to left paracentral region with wilbur re facet arthropathy. There is severe spinal canal stenosis/thecal sac compression. There is severe l eft neural foraminal compromise and moderate to severe right neural foraminal compromise. At L4-L5, there is diffuse disc bulge with severe facet arthropathy. There is moderate central canal stenosis. There is moderate bilateral neural foraminal narrowing. At L5-S1, there is minimal disc bulge with severe facet arthropathy. No central canal stenosis. There is severe left neural foraminal narrowing. There is mild right neural foraminal narrowing. Paravertebral soft tissues are unremarkable. Impression: Acute moderate T12 compression fracture. Severe degenerative spondylitic changes in the lumbar spine, as detailed above, worst at L2-L3, L3-L4 , L4-L5. Reviewed, dictated and finalized at [facility]. Impression: Acute moderate T12 compression fracture. Severe degenerative spondylitic changes in the lumbar spine, as detailed above, worst at L2-L3, L3-L4, L4-L5.
== END 2025-01-19 12:22 | disposition home or self-care (01) ==
LOC: GOSHIMG 12:22
PROVIDERS: PCP Family Medicine Adolescent Medicine; Visit Provider Nurse Practitioner Family
DX: M47.896 Other spondylosis, lumbar region (principal); S22.080A Wedge compression fracture of T11-T12 vertebra, initial encounter for closed fracture; X58.XXXA Exposure to other specified factors, initial encounter
CPT/HCPCS: 72148

== ENCOUNTER 2025-02-12 07:56 | Outpatient (CLI) | payer MEDICARE, SELFPAY ==
--- NOTE | ~2025-02-12 | DEXA_ITS ---
Bone Density Report Name: ASHTYN BRYANT Age: 74 Sex: Female Ethnicity: White Date of : 1950 Indication: postmenopausal; screening for osteoporosis; height loss; prior fracture; hysterectomy; rheumatoid arthritis; Referring Provider: ANETTE CUELLAR Study: Bone densitometry was performed. Exam Date: February 12, 2025 Accession number: [id number] Bone Density: Region BMD T-score Z-score Classification AP Spine(L1, L4) 1.068 0.3 2.7 Normal Femoral Neck (Left) 0.890 0.4 2.4 Normal Total Hip (Left) 0.838 -0.9 0.9 Normal Femoral Neck (Right) 0.918 0.6 2.7 Normal Total Hip (Right) 0.878 -0.5 1.2 Normal Total Hip Mean 0.858 -0.7 1.1 Normal World Health Organization criteria for BMD impression classify patients as: Normal (T-score at or above -1.0), Osteopenia (T-score between -1.0 and -2.5), or Osteoporosis (T-score at or below -2.5). 10-year Fracture Risk: FRAX not reported because: All T-scores for Spine Total, Hip Total, Femoral Neck at or above -1.0 Prior hip or vertebral fracture Previous Exams: -- Region Exam Age BMD T-score BMD Change BMD Change Date g/cm2 vs Baseline vs Previous -- AP Spine (L1,L4) 02/12/2025 74 1.068 0.3 -16.0%# -5.5%# 02/12/2025 74 1.130 0.8 -11.1%# -3.8%* 02/01/2023 72 1.174 1.2 -7.7%# 4.1%* 05/07/2017 66 1.128 0.8 -11.3%# -3.7%* 04/26/2008 57 1.172 1.2 -7.9%# -7.9%# 05/19/2003 52 1.272 2.1 Total Hip(Left) 02/12/2025 74 0.838 -0.9 -19.5%# -14.6%* 02/01/2023 72 0.981 0.3 -5.7%# 1.8% 05/07/2017 66 0.964 0.2 -7.4%# -6.9%* 04/26/2008 57 1.035 0.8 -0.6%# -0.6%# 05/19/2003 52 1.041 0.8 Total Hip(Right) 02/12/2025 74 0.878 -0.5 -18.2%# -5.2%* 02/01/2023 72 0.926 -0.1 -13.8%# -5.8%* 05/07/2017 66 0.983 0.3 -8.5%# -3.5%* 04/26/2008 57 1.019 0.6 -5.1%# -5.1%# 05/19/2003 52 1.074 1.1 -- *Denotes significance at 95% confidence level, LSC for AP Spine = 0.022 g/cm2, LSC for Total Hip = 0.027 g/cm2 Rate of change results reflect vertebral levels common to all scans # Denotes dissimilar scan types or analysis methods Clinical Information Provided by Patient: Have had a previous hip or vertebral fracture Has had a low trauma fracture Has rheumatoid arthritis Has the following medical conditions: Hysterectomy Patient maximum height was 66 Menopause Age: 32 No regular weight bearing exercise Does not regularly consume dairy products Drinks caffeinated beverages Onset of menses at age 12 Number of children 2 Impression: The patient has normal bone mass. The patient has risk factors, including: previous fracture. The BMD for the Total Hip(Left) decreased, changing by -14.6% since the last DXA exam. The BMD for the Total Hip(Right) decreased, changing by -5.2% since the last DXA exam. Discussion: INCREASED RISK OF FRACTURE DUE TO HISTORY OF FRACTURE. The patient's previous fracture puts the patient at high risk of a future fracture. In untreated patients, the risk of osteoporotic fracture increases approximately two-fold for each 1.0 SD decrease in T-score. Low bone density is not the only risk factor for fracture; also consider factors such as patient's age, frailty or poor health, risk of falling, risk of injury, previous osteoporotic fracture, family history of osteoporosis, cigarette smoking, low body weight, etc. Not everyone with a low trauma fracture has osteoporosis; osteomalacia and other metabolic bone disorders should also be considered. Patients who have osteoporosis should be evaluated for specific diseases and conditions (secondary causes) that may cause or contribute to bone loss and fracture risk. National Osteoporosis Foundation (NOF) recommends pharmacologic intervention for patients with a prior hip or vertebral fracture regardless of BMD T-score. The patient should follow a healthful lifestyle (good nutrition with adequate calcium and vitamin D, and appropriate weight-bearing exercise). Follow-Up: Consider a repeat BMD and Vertebral Fracture Assessment (VFA) exam in 2 years or sooner if medically necessary, to reassess this patient's status. Reported by: TEA on 02/12/2025 8:42:00 AM. Reviewed, dictated and finalized at location A.
== END 2025-02-12 07:57 | disposition home or self-care (01) ==
LOC: MICIMG 07:56
PROVIDERS: PCP Family Medicine Adolescent Medicine; Visit Provider Family Medicine Adolescent Medicine
DX: Z78.0 Asymptomatic menopausal state (principal)
CPT/HCPCS: 77080

== ENCOUNTER 2025-04-27 11:05 | Outpatient (CLI) | payer MEDICARE, SELFPAY ==
--- NOTE | ~2025-04-27 | XR_ITS ---
Lumbar spine series Indication: Age-related osteoporosis with current pathological fracture Comparison: MRI lumbar spine 01/19/2025 Lumbar spine radiographs 01/12/2025 Technique: 5 films lumbar spine, including flexion and extension Findings: 5 nonrib-bearing lumbar-type vertebral bodies. Cement augmentation T12. No acute fracture. Grade 1 anterolisthesis L3 on 4, L4 on 5. No motion with flexion or extension. Disc disease L2-3, with endplate osteophytes anteriorly. Moderate degenerative changes. SI joints congruent. Sacrum intact. IMPRESSION: 1. No acute findings. 2. No instability with flexion or extension. Reviewed, dictated and finalized at location R. N ROOM OPERATOR
== END 2025-04-27 11:06 | disposition home or self-care (01) ==
PROVIDERS: PCP Family Medicine Adolescent Medicine; Visit Provider Nurse Practitioner Family
DX: M80.08XA Age-related osteoporosis with current pathological fracture, vertebra(e), initial encounter for fracture (principal)
CPT/HCPCS: 72110

== ENCOUNTER 2025-04-27 17:51 | Emergency (ER) | payer MEDICARE, SELFPAY ==
[2025-04-27 17:51] VITALS: BP 150/85; PULSE 87; RESP 16; TEMP 36.8; O2SAT 98
--- NOTE | 2025-04-27 18:17 | ED.GENADULT ---
HPI - General Adult General Chief complaint: Recheck/Abnormal Lab/Rx Stated complaint: sciatica Time Seen by Provider: 04/27/25 18:17 Focused HPI: 74 year old female presenting with right sided lower back and hip pain and numbness/tingling radiating down the back of her leg. Denies incontinence. GENERAL: Well-appearing, well-nourished, and in no acute distress. HEAD: Normocephalic, atraumatic. CHEST: Clear to auscultation. ?No respiratory distress. HEART: Regular rate and rhythm.? NEURO: ?Alert and oriented x3. Patient screened in triage and initial orders placed.? ?Additional care and disposition to be based upon?diagnostic testing and treatment. Related Data Allergies Allergy/AdvReac Type Severity Reaction Status Date / Time rosuvastatin Allergy Severe RASH, Verified 04/28/25 14:11 ITCHING adhesive tape Allergy Intermediate Rash Verified 04/28/25 14:11 Quinolones Allergy Mild RASH Verified 04/28/25 14:11 Sulfa (Sulfonamide Allergy Mild RASH, Verified 04/28/25 14:11 Antibiotics) ITCHING codeine Allergy Unknown Unknown Verified 04/28/25 14:11 Penicillins Allergy Unknown Unknown Verified 04/28/25 14:11 doxycycline Allergy Vomiting Verified 04/28/25 14:11 celecoxib AdvReac Severe Abdominal Verified 04/28/25 14:11 Pain pravastatin AdvReac Severe Vomiting Verified 04/28/25 14:11 donepezil AdvReac Intermediate vomiting Verified 04/28/25 14:11 erythromycin base AdvReac Intermediate unknown Verified 04/28/25 14:11 metformin AdvReac Intermediate unknown Verified 04/28/25 14:11 prednisone AdvReac Intermediate Vomiting & Verified 04/28/25 14:11 diarrhea venlafaxine AdvReac Intermediate unknown Verified 04/28/25 14:11 metformin AdvReac Intermediate Diarrhea Uncoded 03/03/25 10:25 PMFSH Past Medical History Medical History Dementia of the Alzheimer's type Carpal tunnel syndrome COVID-19 Normal colonoscopy 09/10 Repeat 09/20 Depression GERD (gastroesophageal reflux disease) Hypothyroid Diabetes Surgical History Surgical History Hx of cholecystectomy History of partial hysterectomy Social History Social History Second hand tobacco smoke exposure: Yes Alcohol intake: never Substance use: current Substance use type: other Other substance usage details: gummies Do You Feel Safe in your Home?: Yes Lack of Transportation: No Lack of Food: Never True Current Housing: I Have Housing Concerned About Future Housing: No Difficulty Paying Gas/Electric Bills: No Difficulty Paying for Meds: No Currently Unemployed: No Education: High School Diploma/GED Difficulty w/ Childcare or Family Care: No Living arrangements: with family Occupation/Education: retired Gender identity (if verbalized by the patient): Female Sexual Orientation (if Verbalized by the Patient): Straight or Heterosexual Spiritual care concerns: No Agree to blood products: Yes Course Vital Signs Vital signs: Vital Signs Temperature 98.2 F 04/27/25 17:51 Pulse Rate 87 04/27/25 17:51 Respiratory Rate 16 04/27/25 17:51 Blood Pressure 150/85 H 04/27/25 17:51 Pulse Oximetry 98 04/27/25 17:51 Temperature 98.1 F 04/27/25 20:10 Pulse Rate 94 04/27/25 20:10 Respiratory Rate 20 04/27/25 20:10 Blood Pressure 140/89 04/27/25 20:10 Pulse Oximetry 100 04/27/25 20:10 Medical Decision Making [facility] Narrative Medical decision making narrative: Patient left after medical screening exam and before any further evaluation or management Vital Signs Vital Signs: Vital Signs Temperature 98.2 F 04/27/25 17:51 Pulse Rate 87 04/27/25 17:51 Respiratory Rate 16 04/27/25 17:51 Blood Pressure 150/85 H 04/27/25 17:51 Pulse Oximetry 98 04/27/25 17:51 Temperature 98.1 F 04/27/25 20:10 Pulse Rate 94 04/27/25 20:10 Respiratory Rate 20 04/27/25 20:10 Blood Pressure 140/89 04/27/25 20:10 Pulse Oximetry 100 04/27/25 20:10 Discharge Plan Discharge Clinical Impression: Back pain Patient Disposition: Elopement After Seen by Prov Patient Language: Irish Prescriptions: No Action pioglitazone 30 mg tablet 30 mg PO DAILY Qty: 30 1RF hydrocortisone 2.5 % cream 1 applic topical BID PRN (Reason: itching) Qty: 60 2RF ketoconazole 2 % cream 1 applic topical BID Qty: 30 0RF Rx Instructions: For yeast diltiazem HCl 240 mg capsule,extended release 24hr 240 mg PO DAILY Qty: 90 3RF ezetimibe 10 mg tablet 10 mg PO DAILY Qty: 90 3RF levothyroxine 112 mcg tablet 112 mcg PO DAILY Qty: 90 3RF lisinopril 40 mg tablet 40 mg PO DAILY Qty: 90 3RF pantoprazole 40 mg tablet,delayed release (DR/EC) 40 mg PO BID Qty: 180 3RF memantine 10 mg tablet 10 mg PO BID Qty: 180 3RF galantamine 24 mg capsule,ext rel. pellets 24 hr 24 mg PO QAM Qty: 90 2RF Rx Instructions: administer with breakfast prochlorperazine maleate 10 mg tablet 10 mg PO QID PRN (Reason: nausea and vomiting) Qty: 20 0RF pioglitazone 45 mg tablet 45 mg PO DAILY Qty: 90 1RF cyclobenzaprine 10 mg tablet 10 mg PO TID PRN (Reason: muscle spasm) Qty: 20 0RF paroxetine HCl 40 mg tablet 40 mg PO DAILY Qty: 90 3RF metformin 500 mg tablet extended release 24 hr 1,500 mg PO DAILY Qty: 270 3RF tramadol 50 mg tablet See Rx Instructions PO BID PRN (Reason: pain) Qty: 80 2RF Rx Instructions: Take 1/2 to 1 orally twice a day PRN; budesonide-formoterol [Breyna] 80-4.5 mcg/actuation HFA aerosol inhaler See Rx Instructions .ROUTE .COMPLEX Qty: 11 1RF Dose Instruction: Inhale 2 puffs by mouth twice daily Rx Instructions: Inhale 2 puffs by mouth twice daily diphenoxylate-atropine [Lomotil] 2.5-0.025 mg tablet See Rx Instructions PO QID PRN (Reason: diarrhea) Qty: 30 1RF Rx Instructions: Take 1 0r 2 tablets PO four times daily PRN; oxycodone-acetaminophen 7.5-325 mg tablet 1 tablet PO Q6H PRN (Reason: pain) Qty: 90 0RF insulin glargine [Lantus Solostar U-100 Insulin] 100 unit/mL (3 mL) insulin pen 10 unit subcut QPM Qty: 3 0RF (DME) pen needle, diabetic 32 gauge x 5/32 needle See Rx Instructions .Route Qty: 100 3RF Rx Instructions: Use 1 daily for insulin injection Follow-up/Referrals: Que Malcolm MD [Primary Care Provider, Family Practice]
[2025-04-27 20:10] VITALS: BP 140/89; PULSE 94; RESP 20; TEMP 36.7; O2SAT 100
--- OUTSIDE RECORDS SUMMARY | 2025-04-27 21:04 | XMS_ITS | Clinical Summary ---
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
== END 2025-04-27 21:31 | disposition left against medical advice (07) ==
PROVIDERS: PCP Family Medicine Adolescent Medicine
DX: M54.50 Low back pain, unspecified (principal); G30.9 Alzheimer's disease, unspecified; F02.80 Dementia in other diseases classified elsewhere, unspecified severity, without behavioral disturbance, psychotic disturbance, mood disturbance, and anxiety; F32.A Depression, unspecified; K21.9 Gastro-esophageal reflux disease without esophagitis; E03.9 Hypothyroidism, unspecified; E11.9 Type 2 diabetes mellitus without complications
CPT/HCPCS: 99281

== ENCOUNTER 2025-04-28 13:21 | Emergency (ER) | payer MEDICARE, SELFPAY ==
--- OUTSIDE RECORDS SUMMARY | 2008-09-16 03:30 | XMS_ITS | Continuity of Care Document ---
Author Organization [facility] Address [address] [place] [address] Phone Care Team Providers Care Environmental Health Specialist Name Role Phone Jeyson Purcell Unavailable Unavailable Procedures Procedure Date Office/outpatient Visit, [facility] Advance Directives Directive Yes / No Effective Date File Name No Information Encounters Encounter Description Practice Location Reason(s) For Visit Diagnoses Date Provider Providers Copied on Encounter Office/outpat ient Visit, [facility], [address], [place], [place], [id number], tel:[phone] [facility] No Information Aug-2 6-200 9 Binh Benítez. [address] , [address], [place], [address], [place]. tel:[phone] Family History Family Member Type Diagnosis Age At Onset No Information Payers Payer name Insurance type Covered libertarian ID Authoriza tion(s) [facility] CI [id number] Social History Type Description Quantity Date Captured Comments Sex Female Smoking Status No Information Chief Complaint And Reason For Visit No Information Reason For Referral Reason For Referral No Information History Of Present Illness Encounter Date Complaint History Of Prese nt Illness No Information Functional Status Date Functional Assessmen t No Information Instructions Date Instruction Additional Infor mation No Information Assessments Type Assessment Date No Information Patient Care Teams Name Effective Dates (start - stop) Status Members No Information
--- OUTSIDE RECORDS SUMMARY | 2008-09-16 03:30 | XMS_ITS | Continuity of Care Document ---
Author Organization [facility] Address [address] [place] [address] Phone Care Team Providers Care Ict Help Desk Technician Name Role Phone Jeyson Purcell Unavailable Unavailable Procedures Procedure Date Office/outpatient Visit, [facility] Advance Directives Directive Yes / No Effective Date File Name No Information Encounters Encounter Description Practice Location Reason(s) For Visit Diagnoses Date Provider Providers Copied on Encounter Office/outpat ient Visit, [facility], [address], [place], [place], [id number], tel:[phone] [facility] No Information Aug-2 6-200 9 Binh Benítez. [address] , [address], [place], [address], [place]. tel:[phone] Family History Family Member Type Diagnosis Age At Onset No Information Payers Payer name Insurance type Covered democrat ID Authoriza tion(s) [facility] CI [id number] Social History Type Description Quantity Date Captured [...]
--- NOTE | ~2025-04-28 | CT_ITS ---
EXAMINATION: CT lumbar spine wo con COMPARISON: None HISTORY: low back pain, recent cement? TECHNIQUE: Axial images were obtained through the spine without IV contrast. Coronal, sagittal reconstruction images were obtained from the axial views. CT scan performed using dose optimization techniques including the following automated exposure control; adjustment of mA and/or kV; use of iterative reconstruction technique. Automatic exposure control was used to reduce radiation dose. Permanent radiation dose record is archived to PACS. FINDINGS: Kyphoplasty changes noted in T12. Grade 1 anterolisthesis of L4 on L5, no acute fracture. Severe loss of disc height at L2-3 with severe canal and foraminal stenosis, outpatient MRI is recommended Soft tissues unremarkable. Impression: No acute abnormality. Reviewed, dictated and finalized at location P. NG MACHINE OPERATOR Impression: No acute abnormality.
[2025-04-28 13:21] VITALS: BP 132/79; PULSE 117; RESP 20; TEMP 36.6; O2SAT 99
[2025-04-28 14:04] VITALS: BP 147/86; PULSE 110; RESP 16; TEMP 36.6; O2SAT 98
[2025-04-28 14:09] VITALS: BP 147/86; PULSE 115; RESP 16; TEMP 36.6; O2SAT 98
--- NOTE | 2025-04-28 14:19 | ED_ITS ---
HPI - Back Pain/Injury General Chief Complaint: Back Pain/Injury Stated Complaint: back pain Time Seen by Provider: 04/28/25 14:06 Source: patient Mode of arrival: EMS Limitations: no limitations History of Present Illness HPI Narrative: This is a 74-year-old female with history of diabetes, depression, hypertension, hyperlipidemia, spinal stenosis who presents the ED for back pain. Patient states that for she had cementing of lower lumbar disc herniation a few weeks ago and since then, she has been having severe pain to her right lower lumbar spine that radiates down her right posterior thigh. He has had intermittent numbness to this. Denies bowel/bladder incontinence, saddle anesthesia. She has tried Percocet at home with minimal relief. She has had difficulty walking due to this. Denies fevers, chills. Related Data Allergies Allergy/AdvReac Type Severity Reaction Status Date / Time rosuvastatin Allergy Severe RASH, Verified 04/28/25 14:11 ITCHING adhesive tape Allergy Intermediate Rash Verified 04/28/25 14:11 Quinolones Allergy Mild RASH Verified 04/28/25 14:11 Sulfa (Sulfonamide Allergy Mild RASH, Verified 04/28/25 14:11 Antibiotics) ITCHING codeine Allergy Unknown Unknown Verified 04/28/25 14:11 Penicillins Allergy Unknown Unknown Verified 04/28/25 14:11 doxycycline Allergy Vomiting Verified 04/28/25 14:11 celecoxib AdvReac Severe Abdominal Verified 04/28/25 14:11 Pain pravastatin AdvReac Severe Vomiting Verified 04/28/25 14:11 donepezil AdvReac Intermediate vomiting Verified 04/28/25 14:11 erythromycin base AdvReac Intermediate unknown Verified 04/28/25 14:11 metformin AdvReac Intermediate unknown Verified 04/28/25 14:11 prednisone AdvReac Intermediate Vomiting & Verified 04/28/25 14:11 diarrhea venlafaxine AdvReac Intermediate unknown Verified 04/28/25 14:11 metformin AdvReac Intermediate Diarrhea Uncoded 03/03/25 10:25 Review of Systems Review of Systems: Gen.: Denies fevers or chills Eyes: Denies eye pain or visual change ENT: Denies congestion Respiratory: Denies shortness of breath or cough CV: Denies chest pain or palpitations GI: Denies abdominal pain nausea, emesis or diarrhea denies burning, urgency, frequency or hematuria Musculoskeletal: As per HPI Neuro: As per HPI Skin: Denies rash Except as documented, all other systems reviewed and negative [facility] Past Medical History Medical History Dementia of the Alzheimer's type Carpal tunnel syndrome COVID-19 Normal colonoscopy 09/10 Repeat 09/20 Depression GERD (gastroesophageal reflux disease) Hypothyroid Diabetes Surgical History Surgical History Hx of cholecystectomy History of partial hysterectomy Social History Social History Second hand tobacco smoke exposure: Yes Alcohol intake: never Substance use: current Substance use type: other Other substance usage details: gummies Do You Feel Safe in your Home?: Yes Lack of Transportation: No Lack of Food: Never True Current Housing: I Have Housing Concerned About Future Housing: No Difficulty Paying Gas/Electric Bills: No Difficulty Paying for Meds: No Currently Unemployed: No Education: High School Diploma/GED Difficulty w/ Childcare or Family Care: No Living arrangements: with family Occupation/Education: retired Gender identity (if verbalized by the patient): Female Sexual Orientation (if Verbalized by the Patient): Straight or Heterosexual Spiritual care concerns: No Agree to blood products: Yes Exam Narrative: APPEARANCE: Tearful, mild distress EYES: EOMI HEENT: Normocephalic, atraumatic, OMM RESPIRATORY: No respiratory distress Clear to auscultation bilaterally with no rhonchi wheezing or rales. CARDIOVASCULAR: Tachycardic, well-perfused ABDOMINAL: Soft, nontender, nondistended, no rebound or guarding MUSCULOSKELETAl: Moves all extremities. Tenderness to palpation to the lower midline lumbar spine and right paraspinal lumbar spine with tenderness over the PIIS. NEURO: Awake and alert. Following commands, speech normal, no focal deficits SKIN:: Warm, dry. No rashes lesions or abrasions PSYCHIATRIC: Normal affect/mood, Course Vital Signs Vital signs: Vital Signs Temperature 98 F 04/28/25 13:21 Pulse Rate 117 H 04/28/25 13:21 Respiratory Rate 20 04/28/25 13:21 Blood Pressure 132/79 04/28/25 13:21 Pulse Oximetry 99 04/28/25 13:21 Oxygen Delivery Room Air 04/28/25 13:21 Temperature 97.9 F 04/28/25 14:09 Pulse Rate 91 04/28/25 16:25 Respiratory Rate 16 04/28/25 16:25 Blood Pressure 141/87 H 04/28/25 16:25 Pulse Oximetry 100 04/28/25 16:25 Oxygen Delivery Room Air 04/28/25 14:04 MDM - Back Pain/Injury MDM Narrative Medical decision making narrative: 74-year-old female Presenting for low back pain. On initial evaluation patient was in mild distress, afebrile, hemodynamic stable. Differentials include but are not limited to: MSK pain, disc herniation, uncontrolled pain Notable imaging findings: CT lumbar spine showed no acute process. Patient reported that this was the same as her regular subacute back pain at this time. She had some cementing done to her back and has had pain since that time. She was seen in this ED yesterday for medical screening examination but left prior to full evaluation by medical provider after she received some [place] and apparently had been doing little bit better at that time. She is unable to get in with her pain physician for another month or so prompting her to come to the ED. patient was given Dilaudid 1 mg x 2, Lidoderm, gabapentin with minimal to moderate improvement of her symptoms. She was still in pain so I did discuss the possibility of admission for further pain management but patient did not want to be admitted at this time. She already has significant amounts of pain medications at home. I advised her to follow-up with her pain physician tomorrow to discuss potentially having an earlier appointment. Patient was agreeable to this plan. Given strict return precautions. Medical Records Attestation: I reviewed the patient's medical records. Imaging Data Attestation: I personally reviewed and interpreted this imaging study as follows: Radiologist's impression: Impressions Lumbar Spine CT 04/28/25 15:27 Impression: No acute abnormality. Discharge Plan Discharge Clinical Impression: Low back pain Qualifiers: Chronicity: acute Back pain laterality: right Sciatica presence: with sciatica Sciatica laterality: sciatica of right side Qualified Code(s): M54.41 - Lumbago with sciatica, right side Patient Disposition: Home Condition: Stable Instructions: Antibiotic Form, Sciatica (ED) Additional Instructions: CT scan was reassuring. Take prednisone as prescribed. Continue take her pain medications as previously prescribed. Call your pain doctor tomorrow to discuss a follow-up appointment sooner than scheduled. Return to the ED for any new or worsening symptoms. Patient Language: Luxembourgish Prescriptions: New prednisone 20 mg tablet 40 mg PO DAILY 5 Days Qty: 10 0RF lidocaine [Lidoderm] 5 % adhesive patch,medicated 1 patch topical DAILY Qty: 15 0RF Rx Instructions: leave on most painful area for up to 12 hrs No Action pioglitazone 30 mg tablet 30 mg PO DAILY Qty: 30 1RF hydrocortisone 2.5 % cream 1 applic topical BID PRN (Reason: itching) Qty: 60 2RF ketoconazole 2 % cream 1 applic topical BID Qty: 30 0RF Rx Instructions: For yeast diltiazem HCl 240 mg capsule,extended release 24hr 240 mg PO DAILY Qty: 90 3RF ezetimibe 10 mg tablet 10 mg PO DAILY Qty: 90 3RF levothyroxine 112 mcg tablet 112 mcg PO DAILY Qty: 90 3RF lisinopril 40 mg tablet 40 mg PO DAILY Qty: 90 3RF pantoprazole 40 mg tablet,delayed release (DR/EC) 40 mg PO BID Qty: 180 3RF memantine 10 mg tablet 10 mg PO BID Qty: 180 3RF galantamine 24 mg capsule,ext rel. pellets 24 hr 24 mg PO QAM Qty: 90 2RF Rx Instructions: administer with breakfast prochlorperazine maleate 10 mg tablet 10 mg PO QID PRN (Reason: nausea and vomiting) Qty: 20 0RF pioglitazone 45 mg tablet 45 mg PO DAILY Qty: 90 1RF cyclobenzaprine 10 mg tablet 10 mg PO TID PRN (Reason: muscle spasm) Qty: 20 0RF paroxetine HCl 40 mg tablet 40 mg PO DAILY Qty: 90 3RF metformin 500 mg tablet extended release 24 hr 1,500 mg PO DAILY Qty: 270 3RF tramadol 50 mg tablet See Rx Instructions PO BID PRN (Reason: pain) Qty: 80 2RF Rx Instructions: Take 1/2 to 1 orally twice a day PRN; budesonide-formoterol [Breyna] 80-4.5 mcg/actuation HFA aerosol inhaler See Rx Instructions .ROUTE .COMPLEX Qty: 11 1RF Dose Instruction: Inhale 2 puffs by mouth twice daily Rx Instructions: Inhale 2 puffs by mouth twice daily diphenoxylate-atropine [Lomotil] 2.5-0.025 mg tablet See Rx Instructions PO QID PRN (Reason: diarrhea) Qty: 30 1RF Rx Instructions: Take 1 0r 2 tablets PO four times daily PRN; oxycodone-acetaminophen 7.5-325 mg tablet 1 tablet PO Q6H PRN (Reason: pain) Qty: 90 0RF insulin glargine [Lantus Solostar U-100 Insulin] 100 unit/mL (3 mL) insulin pen 10 unit subcut QPM Qty: 3 0RF (DME) pen needle, diabetic 32 gauge x 5/32 needle See Rx Instructions .Route Qty: 100 3RF Rx Instructions: Use 1 daily for insulin injection Follow-up/Referrals: Que Malcolm MD [Primary Care Provider, Family Practice]
[2025-04-28] MEDS: GABAPENTIN 300 MG CAPSULE PO (14:26)
[2025-04-28] MEDS: CYCLOBENZAPRINE HCL 10 MG TABLET PO (14:26)
[2025-04-28] MEDS: HYDROmorphone HCL INJ (*CRX) 1 MG/ML SYR IV PUSH ×2 (14:27→15:01)
[2025-04-28] MEDS: LIDOCAINE 5% PATCH 1 PATCH TRANSDERM (14:27)
[2025-04-28 15:05] VITALS: BP 136/90; PULSE 96; RESP 20; O2SAT 100
[2025-04-28] MEDS: TRIAMCINOLONE ACET INJ 40 MG/ML VIAL IM (15:59)
[2025-04-28 16:25] VITALS: BP 141/87; PULSE 91; RESP 16; O2SAT 100
--- OUTSIDE RECORDS SUMMARY | 2025-04-29 12:17 | XMS_ITS | Clinical Summary ---
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
--- OUTSIDE RECORDS SUMMARY | 2025-04-29 14:46 | XMS_ITS | Clinical Summary ---
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
== END 2025-04-28 16:26 | disposition home or self-care (01) ==
PROVIDERS: Emergency Provider Student in an Organized Health Care Education/Training Program; PCP Family Medicine Adolescent Medicine
DX: M54.41 Lumbago with sciatica, right side (principal); I10 Essential (primary) hypertension; E11.9 Type 2 diabetes mellitus without complications; E78.5 Hyperlipidemia, unspecified; E03.9 Hypothyroidism, unspecified; G30.9 Alzheimer's disease, unspecified; F02.80 Dementia in other diseases classified elsewhere, unspecified severity, without behavioral disturbance, psychotic disturbance, mood disturbance, and anxiety; F32.A Depression, unspecified; Z86.16 Personal history of COVID-19; Z90.49 Acquired absence of other specified parts of digestive tract; Z77.22 Contact with and (suspected) exposure to environmental tobacco smoke (acute) (chronic); Z79.84 Long term (current) use of oral hypoglycemic drugs; Z79.899 Other long term (current) drug therapy; Z79.4 Long term (current) use of insulin
CPT/HCPCS: 72131; 96372; 96374; 96376; 99284; A9270; J1171; J3301